=== PATIENT | male | born 1975 | race Caucasian/White ===

== ENCOUNTER 2016-07-19 22:30 | Emergency (ER) | payer BC, OTHER ==
[2016-07-19 23:34] LABS: CHLORIDE,CL 108 mmol/L (98-110); SODIUM,NA 141 mmol/L (136-146)
--- NOTE | 2016-07-19 23:37 | EDM.PDOC ---
ED HPI GENERAL MEDICAL PROBLEM - General Chief Complaint: Abdominal Pain Stated Complaint: ABDOMINAL PAIN Time Seen by Provider: 07/19/16 23:13 - History of Present Illness INITIAL COMMENTS - FREE TEXT/NARRATIVE: HISTORY AND PHYSICAL: History of present illness: Patient 41-year-old male patient concern of abdominal pain intermittently x9 months he is here at request of his mother but no reported fever chills nausea vomiting or urinary symptoms no urethral discharge no trauma no other complaints as no clear palliating or aggravating factors patient is a smoker he does use alcohol and does occasionally smoke marijuana denies any other concern Review of systems: As per history of present illness and below otherwise all systems reviewed and negative. Past medical history: As per history of present illness and as reviewed below otherwise noncontributory. Surgical history: As per history of present illness and as reviewed below otherwise noncontributory. Social history: No reported history of drug or alcohol abuse. Family history: As per history of present illness and as reviewed below otherwise noncontributory. Physical exam: HEENT: Atraumatic, normocephalic, pupils reactive, negative for conjunctival pallor or scleral icterus, mucous membranes moist, throat clear, neck supple, nontender, trachea midline. Lungs: Clear to auscultation, breath sounds equal bilaterally, chest nontender. Heart: S1S2, regular, negative for clicks, rubs, or JVD. Abdomen: Soft, nondistended, no localized tenderness. Negative for masses or hepatosplenomegaly. Negative for costovertebral tenderness. Pelvis: Stable nontender. Genitourinary: Deferred. Rectal: Deferred. Extremities: Atraumatic, negative for cords or calf pain. Neurovascular unremarkable. Neuro: Awake, alert, oriented. Cranial nerves II through XII unremarkable. Cerebellum unremarkable. Motor and sensory unremarkable throughout. Exam nonfocal. Diagnostics: CBC CMP lipase UA urine for GC and Chlamydia Therapeutics: None Impression: #1 chronic intermittent abdominal etiology to be determined Definitive disposition and diagnosis as appropriate pending reevaluation and review of above. Lower Abdominal Pain Score (Numeric/FACES): 5 - Related Data Allergies Allergy/AdvReac Type Severity Reaction Status Date / Time No Known Allergies Allergy Verified 07/19/16 22:44 Home Meds: Home Meds . [No Known Home Meds] 07/19/16 [History] Past Medical History HEENT History: Reports: None Cardiovascular History: Reports: None Respiratory History: Reports: None Gastrointestinal History: Reports: None Genitourinary History: Reports: None Musculoskeletal History: Reports: None Neurological History: Reports: None Psychiatric History: Reports: None Endocrine/Metabolic History: Reports: None Hematologic History: Reports: None Immunologic History: Reports: None Oncologic (Cancer) History: Reports: None Dermatologic History: Reports: None - Infectious Disease History Infectious Disease History: Reports: None - Past Surgical History Head Surgeries/Procedures: Reports: None GI Surgical History: Reports: Other (See Below) Other GI Surgeries/Procedures: pyloric stenosis Social & Family History - Family History Family Medical History: Noncontributory - Tobacco Use Smoking Status *Q: Current Every Day Smoker Years of Tobacco use: 25 Packs/Tins Daily: 1 - Caffeine Use Caffeine Use: Reports: Coffee - Recreational Drug Use Recreational Drug Use: Yes Recreational Drug Type: Reports: Marijuana/Hashish Recreational Drug Use Frequency: Weekly ED ROS GENERAL - Review of Systems Review Of Systems: ROS reveals no pertinent complaints other than HPI. ED EXAM, GENERAL - Physical Exam Exam: See Below (See dictation) Course - Vital Signs Last Recorded V/S: Last Vital Signs Temp 36.5 C 07/19/16 22:43 Pulse 94 07/19/16 22:43 Resp 16 07/19/16 22:43 BP 116/67 07/19/16 22:43 Pulse Ox 96 07/19/16 22:43 - Orders/Labs/Meds Orders: Active Orders 24 hr Category Date Time Status AMYLASE [CHEM] Stat Lab 07/19/16 23:04 Received CHLAMYDIA TRACHOMATIS/GC AMPLF Stat Lab 07/19/16 23:20 Received COMPREHENSIVE METABOLIC PN,CMP [CHEM] Stat Lab 07/19/16 23:04 Received LIPASE [CHEM] Stat Lab 07/19/16 23:04 Received UA W/MICROSCOPIC [URIN] Stat Lab 07/19/16 23:20 Results Labs: Laboratory Tests 07/19/16 07/19/16 Range/Units 23:04 23:20 WBC 10.03 (4.0-11.0) K/uL RBC 5.26 (4.50-5.90) M/uL Hgb 15.6 (13.0-17.0) g/dL Hct 46.8 (38.0-50.0) % MCV 89.0 (80.0-98.0) fL MCH 29.7 (27.0-32.0) pg MCHC 33.3 (31.0-37.0) g/dL RDW Std Deviation 45.4 (28.0-62.0) fl RDW Coeff of Dmitri 14 (11.0-15.0) % Plt Count 228 (150-400) K/uL MPV 9.80 (7.40-12.00) fL Neut % (Auto) 45.4 L (48.0-80.0) % Lymph % (Auto) 44.0 H (16.0-40.0) % [place] % (Auto) 7.1 (0.0-15.0) % Eos % (Auto) 3.0 (0.0-7.0) % Baso % (Auto) 0.5 (0.0-1.5) % Neut # (Auto) 4.6 (1.4-5.7) K/uL Lymph # (Auto) 4.4 H (0.6-2.4) K/uL [place] # (Auto) 0.7 (0.0-0.8) K/uL Eos # (Auto) 0.3 (0.0-0.7) K/uL Baso # (Auto) 0.1 (0.0-0.1) K/uL Nucleated RBC % 0.0 /100WBC Nucleated RBCs # 0 K/uL Urine Color YELLOW Urine Appearance CLEAR Urine pH 6.0 (5.0-8.0) Ur Specific [place] <= 1.005 (1.001-1.035) Urine Protein NEGATIVE (NEGATIVE) mg/dL Urine Glucose (UA) NEGATIVE (NEGATIVE) mg/dL Urine Ketones NEGATIVE (NEGATIVE) mg/dL Urine Occult Blood NEGATIVE (NEGATIVE) Urine Nitrite NEGATIVE (NEGATIVE) Urine Bilirubin NEGATIVE (NEGATIVE) Urine Urobilinogen 0.2 (<2.0) EU/dL Ur Leukocyte Esterase NEGATIVE (NEGATIVE) Departure - Departure Time of Disposition: 23:36 Disposition: Home, Self-Care 01 Condition: good Clinical Impression: Abdominal pain - Discharge Information Forms: ED Department Discharge Additional Instructions: The following information is given to patients seen in the emergency department who are being discharged to home. This information is to outline your options for follow-up care. We provide all patients seen in our emergency department with a follow-up referral. The need for follow-up, as well as the timing and circumstances, are variable depending upon the specifics of your emergency department visit. If you don't have a primary care physician on staff, we will provide you with a referral. We always advise you to contact your personal physician following an emergency department visit to inform them of the circumstance of the visit and for follow-up with them and/or the need for any referrals to a consulting specialist. The emergency department will also refer you to a specialist when appropriate. This referral assures that you have the opportunity for followup care with a specialist. All of these measure are taken in an effort to provide you with optimal care, which includes your followup. Under all circumstances we always encourage you to contact your private physician who remains a resource for coordinating your care. When calling for followup care, please make the office aware that this follow-up is from your recent emergency room visit. If for any reason you are refused follow-up, please contact the [facility] emergency department at and asked to speak to the emergency department charge nurse. [facility] [place] [id number] [facility] Specialty Care - General Surgery Professional Building [address] [place] [address], [address] [place] [address] Followup primary medical doctor/general surgery call to schedule appointment return as needed as discussed - My Orders Last 24 Hours: My Active Orders 07/19/16 23:04 AMYLASE [CHEM] Stat COMPREHENSIVE METABOLIC PN,CMP [CHEM] Stat LIPASE [CHEM] Stat 07/19/16 23:20 CHLAMYDIA TRACHOMATIS/GC AMPLF Stat UA W/MICROSCOPIC [URIN] Stat - Assessment/Plan Last 24 Hours: My Active Orders 07/19/16 23:04 AMYLASE [CHEM] Stat COMPREHENSIVE METABOLIC PN,CMP [CHEM] Stat LIPASE [CHEM] Stat 07/19/16 23:20 CHLAMYDIA TRACHOMATIS/GC AMPLF Stat UA W/MICROSCOPIC [URIN] Stat
[2016-07-20 00:19] VITALS: BP 119/59
== END 2016-07-20 00:08 | disposition home or self-care (01) ==
LOC: MW.ED 22:30
DX: R10.30 Lower abdominal pain, unspecified (principal); F17.210 Nicotine dependence, cigarettes, uncomplicated
CPT/HCPCS: 36415; 80053; 81001; 82150; 83690; 85025; 87491; 87591; 99282; 99284

== ENCOUNTER → 2016-07-20 | Outpatient (CLI) | payer SELFPAY ==
[~2016-07-20] MED LIST: Iopamidol 755 MG/ML 500 ML Multipack Bottle IVPUSH STA
--- NOTE | 2016-07-23 13:51 | CT ---
EXAM DATE: 07/20/16 PATIENT'S AGE: 41 Patient: SIA BRAY Facility: [place], [place] Site Site : 1975 Study: CT Abdomen/Pelvis W/ and W/O Cont [id number]/[id number] 4:55:58 PM Ordering Physician: MADHAVI. BRYCE ALBA Final Report: INDICATION: Lower abdominal pain that radiates into the testicles. TECHNIQUE: CT abdomen and pelvis acquired without and with 100 cc Isovue 370 IV contrast. COMPARISON: None. FINDINGS: LOWER CHEST: Unremarkable. LIVER: Normal in size and attenuation. Single small cyst is present in the left lobe. GALLBLADDER AND BILE DUCTS: Unremarkable. No stones or inflammation. No biliary dilatation. PANCREAS: Unremarkable. No mass or inflammation. SPLEEN: Unremarkable. Normal in size. No masses. ADRENAL GLANDS: Unremarkable. No nodules. KIDNEYS: Unremarkable. No masses, stones, or hydronephrosis. GI TRACT: Unremarkable. Normal in caliber. No sign of mass or inflammation. VASCULATURE: Unremarkable. LYMPH NODES: No lymphadenopathy. OMENTUM/PERITONEUM: Unremarkable. No sign of hernia. No sign of mass or infiltration. No free air or significant free fluid. PELVIS: Unremarkable. No sign of hernia or inflammation. BONES: Unremarkable for age. IMPRESSION: Unremarkable CT of the abdomen and pelvis. No findings to explain abdominal or testicular pain. Please note that all CT scans at this facility use dose modulation, iterative reconstruction, and/or weight-based dosing when appropriate to reduce radiation dose to as low as reasonably achievable. Dictated by Kevin Mcnamara MD @ Jul 23 2016 10:21AM (Electronic Signature) Report Signed by Proxy. ZUCKER HILLSIDE HOSPITALLakeshia
== END ==
LOC: MW.CHRC 16:16
PROVIDERS: ATTEND Family Medicine
DX: R10.9 Unspecified abdominal pain (principal)
CPT/HCPCS: 74178; Q9967

== ENCOUNTER 2017-06-17 20:46 | Emergency (ER) | payer MEDICAID ==
[2017-06-17 20:55] VITALS: BP 120/76
--- NOTE | 2017-06-17 21:26 | EDM.PDOC ---
ED HPI GENERAL MEDICAL PROBLEM - General Chief Complaint: Upper Extremity Injury/Pain Stated Complaint: PAIN/INFECTION RT COLLINS Time Seen by Provider: 06/17/17 21:23 - History of Present Illness INITIAL COMMENTS - FREE TEXT/NARRATIVE: HISTORY AND PHYSICAL: History of present illness: Patient's 42-year-old male presents with a concern of possible infection of his right hand he states he sustained a laceration over the distal aspect of the second metacarpal of his right hand and subsequently developed some pain redness and swelling he denies fever chills nausea vomiting or other complaints. Review of systems: As per history of present illness and below otherwise all systems reviewed and negative. Past medical history: As per history of present illness and as reviewed below otherwise noncontributory. Surgical history: As per history of present illness and as reviewed below otherwise noncontributory. Social history: No reported history of drug or alcohol abuse. Family history: As per history of present illness and as reviewed below otherwise noncontributory. Physical exam: HEENT: Atraumatic, normocephalic, pupils reactive, negative for conjunctival pallor or scleral icterus, mucous membranes moist, throat clear, neck supple, nontender, trachea midline. Lungs: Clear to auscultation, breath sounds equal bilaterally, chest nontender. Heart: S1S2, regular, negative for clicks, rubs, or JVD. Abdomen: Soft, nondistended, nontender. Negative for masses or hepatosplenomegaly. Negative for costovertebral tenderness. Pelvis: Stable nontender. Genitourinary: Deferred. Rectal: Deferred. Extremities: Patient has some small swelling and callus formation with minimal tenderness and erythema over the distal aspect of the second metacarpal of the right hand CMS neurovascular exams unremarkable. Neuro: Awake, alert, oriented. Cranial nerves II through XII unremarkable. Cerebellum unremarkable. Motor and sensory unremarkable throughout. Exam nonfocal. Diagnostics: CBC x-ray right hand Therapeutics: To be determined Impression: #1 observation 2 weeks status post injury right hand rule out cellulitis Definitive disposition and diagnosis as appropriate pending reevaluation and review of above. right hand Pain Score (Numeric/FACES): 7 - Related Data Allergies Allergy/AdvReac Type Severity Reaction Status Date / Time No Known Allergies Allergy Verified 06/17/17 20:55 Home Meds: Home Meds . [No Known Home Meds] 07/19/16 [History] Past Medical History - Past Health History Medical/Surgical History: Denies Medical/Surgical History HEENT History: Reports: None Cardiovascular History: Reports: None Respiratory History: Reports: None Gastrointestinal History: Reports: None Genitourinary History: Reports: None Musculoskeletal History: Reports: None Neurological History: Reports: None Psychiatric History: Reports: None Endocrine/Metabolic History: Reports: None Hematologic History: Reports: None Immunologic History: Reports: None Oncologic (Cancer) History: Reports: None Dermatologic History: Reports: None - Infectious Disease History Infectious Disease History: Reports: None - Past Surgical History Head Surgeries/Procedures: Reports: None GI Surgical History: Reports: Other (See Below) Other GI Surgeries/Procedures: pyloric stenosis Social & Family History - Family History Family Medical History: Noncontributory - Tobacco Use Smoking Status *Q: Current Every Day Smoker Years of Tobacco use: 25 Packs/Tins Daily: 1 - Caffeine Use Caffeine Use: Reports: Coffee - Recreational Drug Use Recreational Drug Use: No Recreational Drug Type: Reports: Marijuana/Hashish Recreational Drug Use Frequency: Weekly Review of Systems - Review of Systems Review Of Systems: ROS reveals no pertinent complaints other than HPI. ED EXAM, GENERAL - Physical Exam Exam: See Below (See dictation) Course - Vital Signs Last Recorded V/S: Last Vital Signs Temp 36.6 C 06/17/17 20:46 Pulse 93 06/17/17 20:46 Resp 18 06/17/17 20:46 BP 120/76 06/17/17 20:46 Pulse Ox 96 06/17/17 20:46 - Orders/Labs/Meds Orders: Active Orders 24 hr Category Date Time Status Hand Comp Min 3V Rt [CR] Stat Exams 06/17/17 20:49 Taken Labs: Laboratory Tests 06/17/17 Range/Units 20:52 WBC 9.69 (4.0-11.0) K/uL RBC 5.35 (4.50-5.90) M/uL Hgb 15.8 (13.0-17.0) g/dL Hct 46.7 (38.0-50.0) % MCV 87.3 (80.0-98.0) fL MCH 29.5 (27.0-32.0) pg MCHC 33.8 (31.0-37.0) g/dL RDW Std Deviation 43.5 (28.0-62.0) fl RDW Coeff of Dmitri 14 (11.0-15.0) % Plt Count 217 (150-400) K/uL MPV 10.20 (7.40-12.00) fL Neut % (Auto) 55.6 (48.0-80.0) % Lymph % (Auto) 32.8 (16.0-40.0) % [place] % (Auto) 8.2 (0.0-15.0) % Eos % (Auto) 3.1 (0.0-7.0) % Baso % (Auto) 0.3 (0.0-1.5) % Neut # (Auto) 5.4 (1.4-5.7) K/uL Lymph # (Auto) 3.2 H (0.6-2.4) K/uL [place] # (Auto) 0.8 (0.0-0.8) K/uL Eos # (Auto) 0.3 (0.0-0.7) K/uL Baso # (Auto) 0.0 (0.0-0.1) K/uL Nucleated RBC % 0.0 /100WBC Nucleated RBCs # 0 K/uL Meds: Medications Discontinued Medications Generic Name Dose Route Start Last Admin Trade Name Axelq PRN Reason Stop Dose Admin Ceftriaxone Sodium 1,000 mg/ 4 mls @ 4 mls/sec 06/17/17 22:00 Lidocaine HCl IM 06/17/17 22:01 ONETIME ONE Departure - Departure Time of Disposition: 22:01 Disposition: Home, Self-Care 01 Condition: Good Clinical Impression: Cellulitis - Discharge Information Forms: ED Department Discharge Additional Instructions: The following information is given to patients seen in the emergency department who are being discharged to home. This information is to outline your options for follow-up care. We provide all patients seen in our emergency department with a follow-up referral. The need for follow-up, as well as the timing and circumstances, are variable depending upon the specifics of your emergency department visit. If you don't have a primary care physician on staff, we will provide you with a referral. We always advise you to contact your personal physician following an emergency department visit to inform them of the circumstance of the visit and for follow-up with them and/or the need for any referrals to a consulting specialist. The emergency department will also refer you to a specialist when appropriate. This referral assures that you have the opportunity for followup care with a specialist. All of these measure are taken in an effort to provide you with optimal care, which includes your followup. Under all circumstances we always encourage you to contact your private physician who remains a resource for coordinating your care. When calling for followup care, please make the office aware that this follow-up is from your recent emergency room visit. If for any reason you are refused follow-up, please contact the [facility] emergency department at and asked to speak to the emergency department charge nurse. [facility] specialty clinic-Plastics [address] [place] [id number] Keflex as prescribed sling as directed follow-up hand surgery above fall for appointment Keflex as prescribed - My Orders Last 24 Hours: My Active Orders 06/17/17 20:49 Hand Comp Min 3V Rt [CR] Stat - Assessment/Plan Last 24 Hours: My Active Orders 06/17/17 20:49 Hand Comp Min 3V Rt [CR] Stat
[2017-06-17] MEDS ORDERED: cefTRIAXone 1,000 MG in Lidocaine 1% 4 ML IM ONE (22:00)
--- NOTE | 2017-06-18 13:10 | CR ---
EXAM DATE: 06/17/17 PATIENT'S AGE: 42 Patient: SIA BRAY Facility: [place], [place] Site . Site : 1975 Study: XRay Extremity Right hand [id number]/16/2018 9:13:34 PM Ordering Physician: Doctor Carranza Final Report: Indication: Pain and swelling 2nd MCP joint, recent trauma Technique: Three views right hand Comparison: None Findings: Bones: Alignment is normal. No fractures or bone lesions. Joint spaces: Unremarkable. Soft tissues: Unremarkable. Impression: Negative. Dictated by Lisa Turk MD @ Jun 17 2017 9:33PM (Electronic Signature) Report Signed by Proxy. ERIBERTO
== END 2017-06-17 22:28 | disposition home or self-care (01) ==
LOC: MW.ED 20:46
DX: L03.113 Cellulitis of right upper limb (principal); F17.210 Nicotine dependence, cigarettes, uncomplicated
CPT/HCPCS: 36415; 73130; 85025; 96372; 99283; A4566; J0696

== ENCOUNTER 2017-06-22 11:55 | Emergency (ER) | payer MEDICAID ==
--- NOTE | 2017-06-22 12:22 | EDM.PDOC ---
ED HPI GENERAL MEDICAL PROBLEM - General Chief Complaint: Skin Complaint Stated Complaint: RASH ON RT HAND Time Seen by Provider: 06/22/17 12:17 - History of Present Illness INITIAL COMMENTS - FREE TEXT/NARRATIVE: HISTORY AND PHYSICAL: History of present illness: Patient 42-year-old male who was seen prior visit for possible infection of his right hand this is been going on for several weeks he states he had an injury several weeks prior to that visit x-ray was negative routine labs were unremarkable he was prescribed Keflex he did not get this filled he states that this was changed per his conversation with hand surgery office to Augmentin he has been on that and presents now with a rash on the right forearm. His schedule appointment is this week. No fever chills nausea vomiting or other complaints Review of systems: As per history of present illness and below otherwise all systems reviewed and negative. Past medical history: As per history of present illness and as reviewed below otherwise noncontributory. Surgical history: As per history of present illness and as reviewed below otherwise noncontributory. Social history: No reported history of drug or alcohol abuse. Family history: As per history of present illness and as reviewed below otherwise noncontributory. Physical exam: HEENT: Atraumatic, normocephalic, pupils reactive, negative for conjunctival pallor or scleral icterus, mucous membranes moist, throat clear, neck supple, nontender, trachea midline. Lungs: Clear to auscultation, breath sounds equal bilaterally, chest nontender. Heart: S1S2, regular, negative for clicks, rubs, or JVD. Abdomen: Soft, nondistended, nontender. Negative for masses or hepatosplenomegaly. Negative for costovertebral tenderness. Pelvis: Stable nontender. Genitourinary: Deferred. Rectal: Deferred. Extremities: Right hand has no significant interval change in arguable improvement of the swelling is no erythema or fluctuance present maculopapular type rash on the forearms very nonspecific and nontoxic in appearance no evidence of lymphangitis. Neuro: Awake, alert, oriented. Cranial nerves II through XII unremarkable. Cerebellum unremarkable. Motor and sensory unremarkable throughout. Exam nonfocal. Diagnostics: None Therapeutics: None Impression: #1 medical screening exam #2 rash #3 history of possible early cellulitis right hand Definitive disposition and diagnosis as appropriate pending reevaluation and review of above. Right Hand/Arm Pain Score (Numeric/FACES): 7 - Related Data Allergies Allergy/AdvReac Type Severity Reaction Status Date / Time codeine Allergy Hives Verified 06/22/17 12:17 Home Meds: Home Meds Amoxicillin/Clavulanate K [Augmentin 875-125 MG] 1 tab PO BID 06/22/17 [History] Past Medical History - Past Health History Medical/Surgical History: Denies Medical/Surgical History HEENT History: Reports: None Cardiovascular History: Reports: None Respiratory History: Reports: None Gastrointestinal History: Reports: None Genitourinary History: Reports: None Musculoskeletal History: Reports: None Neurological History: Reports: None Psychiatric History: Reports: None Endocrine/Metabolic History: Reports: None Hematologic History: Reports: None Immunologic History: Reports: None Oncologic (Cancer) History: Reports: None Dermatologic History: Reports: None - Infectious Disease History Infectious Disease History: Reports: None - Past Surgical History Head Surgeries/Procedures: Reports: None GI Surgical History: Reports: Other (See Below) Other GI Surgeries/Procedures: pyloric stenosis Social & Family History - Family History Family Medical History: Noncontributory - Tobacco Use Smoking Status *Q: Current Every Day Smoker Years of Tobacco use: 25 Packs/Tins Daily: 1 - Caffeine Use Caffeine Use: Reports: Coffee - Recreational Drug Use Recreational Drug Use: No Recreational Drug Type: Reports: Marijuana/Hashish Recreational Drug Use Frequency: Weekly ED ROS GENERAL - Review of Systems Review Of Systems: ROS reveals no pertinent complaints other than HPI. ED EXAM, SKIN/RASH Exam: See Below (See dictation) Course - Vital Signs Last Recorded V/S: Last Vital Signs Temp 36.7 C 06/22/17 12:05 Pulse 82 06/22/17 12:05 Resp 18 06/22/17 12:05 BP 122/69 06/22/17 12:05 Pulse Ox 97 06/22/17 12:05 Departure - Departure Time of Disposition: 12:21 Disposition: Home, Self-Care 01 Condition: Good Clinical Impression: Encounter for medical screening examination, Rash, Cellulitis - Discharge Information Referrals: PCP,None [Primary Care Provider] - Additional Instructions: The following information is given to patients seen in the emergency department who are being discharged to home. This information is to outline your options for follow-up care. We provide all patients seen in our emergency department with a follow-up referral. The need for follow-up, as well as the timing and circumstances, are variable depending upon the specifics of your emergency department visit. If you don't have a primary care physician on staff, we will provide you with a referral. We always advise you to contact your personal physician following an emergency department visit to inform them of the circumstance of the visit and for follow-up with them and/or the need for any referrals to a consulting specialist. The emergency department will also refer you to a specialist when appropriate. This referral assures that you have the opportunity for followup care with a specialist. All of these measure are taken in an effort to provide you with optimal care, which includes your followup. Under all circumstances we always encourage you to contact your private physician who remains a resource for coordinating your care. When calling for followup care, please make the office aware that this follow-up is from your recent emergency room visit. If for any reason you are refused follow-up, please contact the [facility] emergency department at and asked to speak to the emergency department charge nurse. Augmentin as prescribed sling as directed keep scheduled clinic appointment Benadryl as directed return as needed as discussed[]
[2017-06-22 17:20] VITALS: BP 111/66
== END 2017-06-22 12:35 | disposition home or self-care (01) ==
LOC: MW.ED 11:55
DX: L03.113 Cellulitis of right upper limb (principal); R21 Rash and other nonspecific skin eruption
CPT/HCPCS: 99282

== ENCOUNTER 2017-07-19 11:10 | Observation (INO) | payer MEDICAID ==
[2017-07-19] MEDS ORDERED: Sodium Chloride 0.9% 10 ML Syringe FLUSH PRN ×2 (11:23→16:48)
[2017-07-19] MEDS ORDERED: Sodium Chloride 0.9% 2.5 ML Syringe FLUSH PRN ×2 (11:23→16:48)
--- NOTE | 2017-07-19 11:36 | EDM.PDOC ---
ED HPI GENERAL MEDICAL PROBLEM - General Stated Complaint: RIGHT ELBOW SWOLLEN Time Seen by Provider: 07/19/17 11:28 Source of Information: Reports: Patient, Family History Limitations: Reports: No Limitations - History of Present Illness INITIAL COMMENTS - FREE TEXT/NARRATIVE: HISTORY AND PHYSICAL: []42-year-old male sent to the emergency department by tender to clinic Dr. Vance History of Present Illness: []Patient has 2 weeks history of cellulitis to his hand and his pseudogout to his right elbow Elbow cannot be straightened to the edema is significant heat radiating pain as a Patient is a smoker Review of Systems: As per history of present illness and below otherwise all systems reviewed and negative. Past medical history: As per history of present illness and as reviewed below otherwise noncontributory. Surgical history: As per history of present illness and as reviewed below otherwise noncontributory. Social history: No reported history of drug or alcohol abuse. Family history: As per history of present illness and as reviewed below otherwise noncontributory. Physical exam: Alert male is cooperative with examination slight position. Does move when asked answers questions in 2-3 words. No shortness of breath HEENT: Atraumatic, normocehpalic, pupils reactive, negative for conjunctival pallor or scleral icterus, mucous membranes moist, throat clear, neck supple, nontender, trachea midline. Lungs: Wheezing on auscultation, breath sounds equal bilaterally, chest non tender. Heart: S1S2, regular, negative for clicks, rubs, or JVD. Abdomen: Soft, nondistended, nontender. Negative for masses or hepatossplenmegaly. Negative for costovertebral tenderness. Pelvis: Stable nontender. Genitourinary: Deferred. Rectal: Deferred Extremities: Atraumatic, negative for cords or calf pain. Right hand with knuckles had cellulitis he states that these are improved now he does have full range of motion. Radial pulses intact. Right elbow with 3+ edema heat radiating there is erythema.Extremely tender upon palpation Neurovascular unremarkable. Neuro: Awake, alert, oriented. Cranial nerves II through XII unremarkable. Cerebellum unremarkable. Motor and sensory unremarkable throughout. Exam nonfocal. Discussed the patient with Dr. Lau who accepted patient for Observation. Diagnostics: [CBC CMP PT/INR blood cultures 2 x-ray chest x-ray right elbow] Therapeutics: []IV normal saline Toradol Benadryl Morphine Impression: [Acute cellulitis/right elbow] Positive methamphetamine in urine Plan: []Refer to observation Definitive disposition and diagnosis as appropriate pending reevaluation and review of above. Onset: Gradual Duration: Week(s): (2) Location: Reports: Upper Extremity, Right Quality: Reports: Ache Severity: Moderate Improves with: Reports: None Worsens with: Reports: None Associated Symptoms: Reports: No Other Symptoms Right Elbow Pain Score (Numeric/FACES): 9 - Related Data Allergies Allergy/AdvReac Type Severity Reaction Status Date / Time codeine Allergy Hives Verified 06/22/17 12:17 Home Meds: Home Meds Amoxicillin/Clavulanate K [Augmentin 875-125 MG] 1 tab PO BID 06/22/17 [History] Colchicine [Colcrys] 0.6 mg DAILY 07/19/17 [History] Past Medical History - Past Health History Medical/Surgical History: Denies Medical/Surgical History HEENT History: Reports: None Cardiovascular History: Reports: None Respiratory History: Reports: None Gastrointestinal History: Reports: None Genitourinary History: Reports: None Musculoskeletal History: Reports: None Neurological History: Reports: None Psychiatric History: Reports: None Endocrine/Metabolic History: Reports: None Hematologic History: Reports: None Immunologic History: Reports: None Oncologic (Cancer) History: Reports: None Dermatologic History: Reports: None - Infectious Disease History Infectious Disease History: Reports: None - Past Surgical History Head Surgeries/Procedures: Reports: None GI Surgical History: Reports: Other (See Below) Other GI Surgeries/Procedures: pyloric stenosis Social & Family History - Family History Family Medical History: Noncontributory - Caffeine Use Caffeine Use: Reports: Coffee ED ROS GENERAL - Review of Systems Review Of Systems: ROS reveals no pertinent complaints other than HPI. ED EXAM, GENERAL - Physical Exam Exam: See Below (see dictation) Course - Vital Signs Last Recorded V/S: Last Vital Signs Temp 37.5 C 07/19/17 15:25 Pulse 75 07/19/17 15:25 Resp 14 07/19/17 15:25 BP 128/87 07/19/17 15:25 Pulse Ox 99 07/19/17 15:25 - Orders/Labs/Meds Orders: Active Orders 24 hr Category Date Time Status Patient Status [ADT] Stat ADT 07/19/17 15:31 Ordered CULTURE BLOOD [BC] Stat Lab 07/19/17 11:41 Received CULTURE BLOOD [BC] Stat Lab 07/19/17 12:08 Received DRUG SCREEN, URINE [URCHEM] Stat Lab 07/19/17 13:50 Ordered UA W/MICROSCOPIC [URIN] Stat Lab 07/19/17 13:50 Ordered Sodium Chloride 0.9% [Saline Flush] Med 07/19/17 11:23 Active 10 ml FLUSH ASDIRECTED PRN Sodium Chloride 0.9% [Saline Flush] Med 07/19/17 11:23 Active 2.5 ml FLUSH ASDIRECTED PRN Blood Culture x2 Reflex Set [OM.PC] Stat Oth 07/19/17 11:23 Ordered Saline Lock Insert [OM.PC] Stat Ot 07/19/17 11:22 Ordered Medication Orders Sodium Chloride (Saline Flush) 10 ml FLUSH ASDIRECTED PRN PRN Reason: Keep Vein Open Sodium Chloride (Saline Flush) 2.5 ml FLUSH ASDIRECTED PRN PRN Reason: Keep Vein Open Labs: Laboratory Tests 07/19/17 07/19/17 07/19/17 Range/Units 11:40 11:40 11:40 WBC 12.03 H (4.0-11.0) K/uL RBC 5.37 (4.50-5.90) M/uL Hgb 15.7 (13.0-17.0) g/dL Hct 46.9 (38.0-50.0) % MCV 87.3 (80.0-98.0) fL MCH 29.2 (27.0-32.0) pg MCHC 33.5 (31.0-37.0) g/dL RDW Std Deviation 45.0 (28.0-62.0) fl RDW Coeff of Dmitri 14 (11.0-15.0) % Plt Count 206 (150-400) K/uL MPV 10.00 (7.40-12.00) fL Neut % (Auto) 69.8 (48.0-80.0) % Lymph % (Auto) 16.7 (16.0-40.0) % Clay % (Auto) 12.1 (0.0-15.0) % Eos % (Auto) 1.2 (0.0-7.0) % Baso % (Auto) 0.2 (0.0-1.5) % Neut # (Auto) 8.4 H (1.4-5.7) K/uL Lymph # (Auto) 2.0 (0.6-2.4) K/uL Clay # (Auto) 1.5 H (0.0-0.8) K/uL Eos # (Auto) 0.1 (0.0-0.7) K/uL Baso # (Auto) 0.0 (0.0-0.1) K/uL Nucleated RBC % 0.0 /100WBC Nucleated RBCs # 0 K/uL INR 1.01 Sodium 141 (136-148) mmol/L Potassium 4.3 (3.5-5.1) mmol/L Chloride 105 (98-107) mmol/L Carbon Dioxide 27.9 (21.0-32.0) mmol/L BUN 17 (7.0-18.0) mg/dL Creatinine 1.0 (0.8-1.3) mg/dL Est Cr Clr Drug Dosing TNP Estimated GFR (MDRD) > 60.0 ml/min Glucose 103 (74-106) mg/dL Uric Acid 3.8 (2.6-7.2) mg/dL Calcium 8.4 L (8.5-10.1) mg/dL Total Bilirubin 0.3 (0.2-1.0) mg/dL AST 11 L (15-37) IU/L ALT 19 (14-63) IU/L Alkaline Phosphatase 73 (46-116) U/L Total Protein 5.9 L (6.4-8.2) g/dL Albumin 3.3 L (3.4-5.0) g/dL Globulin 2.6 (2.0-3.5) g/dL Albumin/Globulin Ratio 1.3 (1.3-2.8) Urine Color Urine Appearance Urine pH (5.0-8.0) Ur Specific [place] (1.001-1.035) Urine Protein (NEGATIVE) mg/dL Urine Glucose (UA) (NEGATIVE) mg/dL Urine Ketones (NEGATIVE) mg/dL Urine Occult Blood (NEGATIVE) Urine Nitrite (NEGATIVE) Urine Bilirubin (NEGATIVE) Urine Urobilinogen (<2.0) EU/dL Ur Leukocyte Esterase (NEGATIVE) Urine RBC (0-2/HPF) Urine WBC (0-5/HPF) Ur Epithelial Cells (NONE-FEW) Urine Bacteria (NEGATIVE) Urine Opiates Screen (NEGATIVE) Ur Oxycodone Screen (NEGATIVE) Urine Methadone Screen (NEGATIVE) Ur Barbiturates Screen (NEGATIVE) Ur Phencyclidine Scrn (NEGATIVE) Ur Amphetamine Screen (NEGATIVE) U Methamphetamines Scrn (NEGATIVE) U Benzodiazepines Scrn (NEGATIVE) U Cocaine Metab Screen (NEGATIVE) U Marijuana (THC) Screen (NEGATIVE) 07/19/17 07/19/17 Range/Units 13:50 13:50 WBC (4.0-11.0) K/uL RBC (4.50-5.90) M/uL Hgb (13.0-17.0) g/dL Hct (38.0-50.0) % MCV (80.0-98.0) fL MCH (27.0-32.0) pg MCHC (31.0-37.0) g/dL RDW Std Deviation (28.0-62.0) fl RDW Coeff of Dmitri (11.0-15.0) % Plt Count (150-400) K/uL MPV (7.40-12.00) fL Neut % (Auto) (48.0-80.0) % Lymph % (Auto) (16.0-40.0) % Clay % (Auto) (0.0-15.0) % Eos % (Auto) (0.0-7.0) % Baso % (Auto) (0.0-1.5) % Neut # (Auto) (1.4-5.7) K/uL Lymph # (Auto) (0.6-2.4) K/uL Clay # (Auto) (0.0-0.8) K/uL Eos # (Auto) (0.0-0.7) K/uL Baso # (Auto) (0.0-0.1) K/uL Nucleated RBC % /100WBC Nucleated RBCs # K/uL INR Sodium (136-148) mmol/L Potassium (3.5-5.1) mmol/L Chloride (98-107) mmol/L Carbon Dioxide (21.0-32.0) mmol/L BUN (7.0-18.0) mg/dL Creatinine (0.8-1.3) mg/dL Est Cr Clr Drug Dosing Estimated GFR (MDRD) ml/min Glucose (74-106) mg/dL Uric Acid (2.6-7.2) mg/dL Calcium (8.5-10.1) mg/dL Total Bilirubin (0.2-1.0) mg/dL AST (15-37) IU/L ALT (14-63) IU/L Alkaline Phosphatase (46-116) U/L Total Protein (6.4-8.2) g/dL Albumin (3.4-5.0) g/dL Globulin (2.0-3.5) g/dL Albumin/Globulin Ratio (1.3-2.8) Urine Color YELLOW Urine Appearance CLEAR Urine pH 6.0 (5.0-8.0) Ur Specific [place] 1.020 (1.001-1.035) Urine Protein NEGATIVE (NEGATIVE) mg/dL Urine Glucose (UA) NEGATIVE (NEGATIVE) mg/dL Urine Ketones NEGATIVE (NEGATIVE) mg/dL Urine Occult Blood NEGATIVE (NEGATIVE) Urine Nitrite NEGATIVE (NEGATIVE) Urine Bilirubin NEGATIVE (NEGATIVE) Urine Urobilinogen 0.2 (<2.0) EU/dL Ur Leukocyte Esterase NEGATIVE (NEGATIVE) Urine RBC 0-1 (0-2/HPF) Urine WBC 0-1 (0-5/HPF) Ur Epithelial Cells RARE (NONE-FEW) Urine Bacteria RARE (NEGATIVE) Urine Opiates Screen NEGATIVE (NEGATIVE) Ur Oxycodone Screen NEGATIVE (NEGATIVE) Urine Methadone Screen NEGATIVE (NEGATIVE) Ur Barbiturates Screen NEGATIVE (NEGATIVE) Ur Phencyclidine Scrn NEGATIVE (NEGATIVE) Ur Amphetamine Screen NEGATIVE (NEGATIVE) U Methamphetamines Scrn POSITIVE (NEGATIVE) U Benzodiazepines Scrn NEGATIVE (NEGATIVE) U Cocaine Metab Screen NEGATIVE (NEGATIVE) U Marijuana (THC) Screen NEGATIVE (NEGATIVE) Meds: Medications Generic Name Dose Route Start Last Admin Trade Name Freq PRN Reason Stop Dose Admin Sodium Chloride 10 ml 07/19/17 11:23 Saline Flush FLUSH ASDIRECTED PRN Keep Vein Open Sodium Chloride 2.5 ml 07/19/17 11:23 Saline Flush FLUSH ASDIRECTED PRN Keep Vein Open Discontinued Medications Generic Name Dose Route Start Last Admin Trade Name Freq PRN Reason Stop Dose Admin Diphenhydramine HCl 25 mg 07/19/17 11:37 05/18/18 11:56 Benadryl IVPUSH 07/19/17 11:38 25 mg ONETIME ONE Administration Sodium Chloride 1,000 mls @ 999 mls/hr 07/19/17 11:37 07/19/17 14:00 Normal Saline IV 07/19/17 12:37 Infused STAT ONE Infusion Piperacillin Sod/Tazobactam 50 mls @ 100 mls/hr 07/19/17 12:05 07/19/17 13:57 Sod 3.375 gm/ Sodium Chloride IV 07/19/17 12:34 100 mls/hr ONETIME ONE Administration Vancomycin HCl 1 gm/ Sodium 250 mls @ 250 mls/hr 07/19/17 12:05 07/19/17 12: 12 Chloride IV 07/19/17 13:04 250 mls/hr ONETIME ONE Administration Ketorolac Tromethamine 30 mg 07/19/17 11:37 07/19/17 11:53 Toradol IVPUSH 07/19/17 11:38 30 mg ONETIME ONE Administration Morphine Sulfate 2 mg 07/19/17 11:37 07/19/17 11:59 Morphine IVPUSH 07/19/17 11:38 2 mg ONETIME ONE Administration Morphine Sulfate 2 mg 07/19/17 13:43 07/19/17 13:53 Morphine IVPUSH 07/19/17 13:44 2 mg ONETIME ONE Administration Departure - Departure Time of Disposition: 15:29 Disposition: Refer to Observation Condition: Good Clinical Impression: Cellulitis Qualifiers: Site of cellulitis: extremity Site of cellulitis of extremity: upper extremity Laterality: right Qualified Code(s): L03.113 - Cellulitis of right upper limb - Discharge Information Instructions: Cellulitis, Adult Referrals: Darryn Churchill MD [Primary Care Provider] - - My Orders Last 24 Hours: My Active Orders 07/19/17 11:22 Saline Lock Insert [OM.PC] Stat 07/19/17 11:23 Sodium Chloride 0.9% [Saline Flush] 10 ml FLUSH ASDIRECTED PRN Sodium Chloride 0.9% [Saline Flush] 2.5 ml FLUSH ASDIRECTED PRN Blood Culture x2 Reflex Set [OM.PC] Stat 07/19/17 11:41 CULTURE BLOOD [BC] Stat 07/19/17 12:08 CULTURE BLOOD [BC] Stat 07/19/17 13:50 DRUG SCREEN, URINE [URCHEM] Stat UA W/MICROSCOPIC [URIN] Stat 07/19/17 15:31 Patient Status [ADT] Stat - Assessment/Plan Last 24 Hours: My Active Orders 07/19/17 11:22 Saline Lock Insert [OM.PC] Stat 07/19/17 11:23 Sodium Chloride 0.9% [Saline Flush] 10 ml FLUSH ASDIRECTED PRN Sodium Chloride 0.9% [Saline Flush] 2.5 ml FLUSH ASDIRECTED PRN Blood Culture x2 Reflex Set [OM.PC] Stat 07/19/17 11:41 CULTURE BLOOD [BC] Stat 07/19/17 12:08 CULTURE BLOOD [BC] Stat 07/19/17 13:50 DRUG SCREEN, URINE [URCHEM] Stat UA W/MICROSCOPIC [URIN] Stat 07/19/17 15:31 Patient Status [ADT] Stat
[2017-07-19] MEDS ORDERED: Morphine 4 MG/ML Syringe IVPUSH ONE ×2 (11:37→13:43)
[2017-07-19] MEDS ORDERED: Sodium Chloride 0.9% 1,000 ML IV ONE (11:37)
[2017-07-19] MEDS ORDERED: diphenhydrAMINE 50 MG/ML SDV IVPUSH ONE (11:37)
[2017-07-19] MEDS ORDERED: Ketorolac 30 MG/ML SDV IVPUSH ONE (11:37)
[2017-07-19] MEDS ORDERED: Piperacillin/Tazobactam 3.375 GM in Sodium Chloride 0.9% 50 ML IV ONE (12:05)
[2017-07-19 12:39] LABS: CHLORIDE,CL 105 mmol/L (98-107); SODIUM,NA 141 mmol/L (136-148)
--- NOTE | 2017-07-19 13:43 | CR ---
EXAMINATION: Right elbow HISTORY: Pain COMPARISON: 07/06/2014 TECHNIQUE: 3 views FINDINGS/IMPRESSION: There is no acute osseous abnormality, dislocation, or fracture. Bone mineraliza tion and joint spaces are preserved. No definite joint effusion however a true lateral was not obtain ed.
--- NOTE | 2017-07-19 13:47 | CR ---
EXAMINATION: Two-view chest (PA and Lateral views). HISTORY: Shortness of breath. FINDINGS: The trachea is midline. The cardiomediastinal silhouette is within normal limits. No pulmonary infilt rates, effusions or pneumothorax. Osseous structures appear unremarkable. IMPRESSION: No acute cardiopulmonary process.
[2017-07-19] MEDS ORDERED: Albuterol/Ipratropium 3.0-0.5 MG/3 ML Neb Soln NEB PRN ×2 (16:48→19:18)
[2017-07-19] MEDS ORDERED: methylPREDNISolone Sodium Succinate 125 MG/2 ML SDV IVPUSH ONE (16:51)
[2017-07-19] MEDS: Morphine 10 MG/ML Syringe IVPUSH PRN ×2 (17:11→19:53)
[2017-07-19] MEDS: Lactated Ringers 1,000 ML IV SCH (17:18)
[2017-07-19] MEDS: Enoxaparin 40 MG/0.4 ML Syringe SUBCUT SCH (17:24)
--- NOTE | 2017-07-19 17:41 | PCM.HP ---
H&P History of Present Illness - General Date of Service: 07/20/17 Admit Problem/Dx: Admission Diagnosis/Problem Admission Diagnosis/Problem Cellulitis and abscess of arm Source of Information: Patient - History of Present Illness Initial Comments - Free Text/Narative: Patient 42 y old man presented to hospital due to severe pain swelling and warmth in the rt elbow .Patient has history of pseudogout and he start having pain in the knuckle of the right hand at the base of fourth finger 2 weeks ago and later he had pain in the right elbow , swelling and erythema. He saw the surgeon Dr. Ann and she aspirated his joint / elbow and diagnosed him with pseudogout.She gave him colchicine po a He had mild improvement in his pain and sweelling , but soon he start having worsening symptoms and came to ER. He smokes since age 8 and is currently wheezing and has cough productive of green phlegm for the past week. Onset of Symptoms: Reports: Gradual Duration of Symptoms: Reports: Week(s): Location: Reports: Upper Extremity, Right Right Elbow Pain Score (Numeric/FACES): 2 - Related Data Allergies/Adverse Reactions: Allergies Allergy/AdvReac Type Severity Reaction Status Date / Time codeine Allergy Hives Verified 06/22/17 12:17 Home Medications: Home Meds Amoxicillin/Clavulanate K [Augmentin 875-125 MG] 1 tab PO BID 06/22/17 [History] Colchicine [Colcrys] 0.6 mg DAILY 07/19/17 [History] Past Medical History - Past Health History Medical/Surgical History: Denies Medical/Surgical History HEENT History: Reports: None Cardiovascular History: Reports: None Respiratory History: Reports: None Gastrointestinal History: Reports: None Genitourinary History: Reports: None Musculoskeletal History: Reports: None Other Musculoskeletal History: pseudo gout Neurological History: Reports: None Psychiatric History: Reports: Aggressive/Hostile Behaviors Endocrine/Metabolic History: Reports: None Hematologic History: Reports: None Immunologic History: Reports: None Oncologic (Cancer) History: Reports: None Dermatologic History: Reports: None - Infectious Disease History Infectious Disease History: Reports: None - Past Surgical History Head Surgeries/Procedures: Reports: None GI Surgical History: Reports: Other (See Below) Other GI Surgeries/Procedures: pyloric stenosis Social & Family History - Family History Family Medical History: Noncontributory - Tobacco Use Smoking Status *Q: Current Every Day Smoker Years of Tobacco use: 28 Packs/Tins Daily: 1.5 Used Tobacco, but Quit: No Second Hand Smoke Exposure: Yes - Caffeine Use Caffeine Use: Reports: Coffee, Energy Drinks, Soda - Alcohol Use Days Per Week of Alcohol Use: 4 Number of Drinks Per Day: 1 Total Drinks Per Week: 4 - Recreational Drug Use Recreational Drug Use: Yes Recreational Drug Type: Reports: Marijuana/Hashish, Methamphetamine Recreational Drug Use Frequency: Monthly H&P Review of Systems - Review of Systems: Review Of Systems: See Below General: Reports: No Symptoms. Denies: Fever, Chills, Malaise, Weight Loss HEENT: Reports: No Symptoms Pulmonary: Reports: Shortness of Breath, Wheezing, Cough, Sputum Cardiovascular: Reports: No Symptoms Gastrointestinal: Reports: No Symptoms Genitourinary: Reports: No Symptoms Musculoskeletal: Reports: Joint Pain, Joint Swelling Skin: Reports: No Symptoms Psychiatric: Reports: No Symptoms Neurological: Reports: No Symptoms Exam - Exam Exam: See Below - Vital Signs Vital Signs: Last Vital Signs Temp 99.5 F 07/19/17 15:25 Pulse 75 07/19/17 15:25 Resp 14 07/19/17 15:25 BP 128/87 07/19/17 15:25 Pulse Ox 99 07/19/17 15:25 Weight: 199 lb 11.2 oz - Exam General: Alert, Oriented HEENT: Conjunctiva Clear, EACs Clear, EOMI, Hearing Intact, Mucosa Moist & [place] , Nares Patent Neck: Supple, Trachea Midline Lungs: Wheezing Cardiovascular: Regular Rate GI/Abdominal Exam: Normal Bowel Sounds, Soft, Non-Tender, No Organomegaly Back Exam: Normal Inspection Extremities: Joint Swelling, Arm Pain, Increased Warmth Skin: Warm, Dry Neurological: Cranial Nerves Intact, Reflexes Equal Bilateral Neuro Extensive - Mental Status: Alert, Oriented x3, Normal Mood/Affect, Normal Cognition, Memory Intact - Patient Data Lab Results Last 24 hrs: Laboratory Results - last 24 hr 07/19/17 07/19/17 07/19/17 Range/Units 11:40 11:40 11:40 WBC 12.03 H (4.0-11.0) K/uL RBC 5.37 (4.50-5.90) M/uL Hgb 15.7 (13.0-17.0) g/dL Hct 46.9 (38.0-50.0) % MCV 87.3 (80.0-98.0) fL MCH 29.2 (27.0-32.0) pg MCHC 33.5 (31.0-37.0) g/dL RDW Std Deviation 45.0 (28.0-62.0) fl RDW Coeff of Dmitri 14 (11.0-15.0) % Plt Count 206 (150-400) K/uL MPV 10.00 (7.40-12.00) fL Neut % (Auto) 69.8 (48.0-80.0) % Lymph % (Auto) 16.7 (16.0-40.0) % [place] % (Auto) 12.1 (0.0-15.0) % Eos % (Auto) 1.2 (0.0-7.0) % Baso % (Auto) 0.2 (0.0-1.5) % Neut # (Auto) 8.4 H (1.4-5.7) K/uL Lymph # (Auto) 2.0 (0.6-2.4) K/uL [place] # (Auto) 1.5 H (0.0-0.8) K/uL Eos # (Auto) 0.1 (0.0-0.7) K/uL Baso # (Auto) 0.0 (0.0-0.1) K/uL Nucleated RBC % 0.0 /100WBC Nucleated RBCs # 0 K/uL INR 1.01 Sodium 141 (136-148) mmol/L Potassium 4.3 (3.5-5.1) mmol/L Chloride 105 (98-107) mmol/L Carbon Dioxide 27.9 (21.0-32.0) mmol/L BUN 17 (7.0-18.0) mg/dL Creatinine 1.0 (0.8-1.3) mg/dL Est Cr Clr Drug Dosing TNP Estimated GFR (MDRD) > 60.0 ml/min Glucose 103 (74-106) mg/dL Uric Acid 3.8 (2.6-7.2) mg/dL Calcium 8.4 L (8.5-10.1) mg/dL Total Bilirubin 0.3 (0.2-1.0) mg/dL AST 11 L (15-37) IU/L ALT 19 (14-63) IU/L Alkaline Phosphatase 73 (46-116) U/L Total Protein 5.9 L (6.4-8.2) g/dL Albumin 3.3 L (3.4-5.0) g/dL Globulin 2.6 (2.0-3.5) g/dL Albumin/Globulin Ratio 1.3 (1.3-2.8) Urine Color Urine Appearance Urine pH (5.0-8.0) Ur Specific [place] (1.001-1.035) Urine Protein (NEGATIVE) mg/dL Urine Glucose (UA) (NEGATIVE) mg/dL Urine Ketones (NEGATIVE) mg/dL Urine Occult Blood (NEGATIVE) Urine Nitrite (NEGATIVE) Urine Bilirubin (NEGATIVE) Urine Urobilinogen (<2.0) EU/dL Ur Leukocyte Esterase (NEGATIVE) Urine RBC (0-2/HPF) Urine WBC (0-5/HPF) Ur Epithelial Cells (NONE-FEW) Urine Bacteria (NEGATIVE) Urine Opiates Screen (NEGATIVE) Ur Oxycodone Screen (NEGATIVE) Urine Methadone Screen (NEGATIVE) Ur Barbiturates Screen (NEGATIVE) Ur Phencyclidine Scrn (NEGATIVE) Ur Amphetamine Screen (NEGATIVE) U Methamphetamines Scrn (NEGATIVE) U Benzodiazepines Scrn (NEGATIVE) U Cocaine Metab Screen (NEGATIVE) U Marijuana (THC) Screen (NEGATIVE) 07/19/17 07/19/17 Range/Units 13:50 13:50 WBC (4.0-11.0) K/uL RBC (4.50-5.90) M/uL Hgb (13.0-17.0) g/dL Hct (38.0-50.0) % MCV (80.0-98.0) fL MCH (27.0-32.0) pg MCHC (31.0-37.0) g/dL RDW Std Deviation (28.0-62.0) fl RDW Coeff of Dmitri (11.0-15.0) % Plt Count (150-400) K/uL MPV (7.40-12.00) fL Neut % (Auto) (48.0-80.0) % Lymph % (Auto) (16.0-40.0) % [place] % (Auto) (0.0-15.0) % Eos % (Auto) (0.0-7.0) % Baso % (Auto) (0.0-1.5) % Neut # (Auto) (1.4-5.7) K/uL Lymph # (Auto) (0.6-2.4) K/uL [place] # (Auto) (0.0-0.8) K/uL Eos # (Auto) (0.0-0.7) K/uL Baso # (Auto) (0.0-0.1) K/uL Nucleated RBC % /100WBC Nucleated RBCs # K/uL INR Sodium (136-148) mmol/L Potassium (3.5-5.1) mmol/L Chloride (98-107) mmol/L Carbon Dioxide (21.0-32.0) mmol/L BUN (7.0-18.0) mg/dL Creatinine (0.8-1.3) mg/dL Est Cr Clr Drug Dosing Estimated GFR (MDRD) ml/min Glucose (74-106) mg/dL Uric Acid (2.6-7.2) mg/dL Calcium (8.5-10.1) mg/dL Total Bilirubin (0.2-1.0) mg/dL AST (15-37) IU/L ALT (14-63) IU/L Alkaline Phosphatase (46-116) U/L Total Protein (6.4-8.2) g/dL Albumin (3.4-5.0) g/dL Globulin (2.0-3.5) g/dL Albumin/Globulin Ratio (1.3-2.8) Urine Color YELLOW Urine Appearance CLEAR Urine pH 6.0 (5.0-8.0) Ur Specific [place] 1.020 (1.001-1.035) Urine Protein NEGATIVE (NEGATIVE) mg/dL Urine Glucose (UA) NEGATIVE (NEGATIVE) mg/dL Urine Ketones NEGATIVE (NEGATIVE) mg/dL Urine Occult Blood NEGATIVE (NEGATIVE) Urine Nitrite NEGATIVE (NEGATIVE) Urine Bilirubin NEGATIVE (NEGATIVE) Urine Urobilinogen 0.2 (<2.0) EU/dL Ur Leukocyte Esterase NEGATIVE (NEGATIVE) Urine RBC 0-1 (0-2/HPF) Urine WBC 0-1 (0-5/HPF) Ur Epithelial Cells RARE (NONE-FEW) Urine Bacteria RARE (NEGATIVE) Urine Opiates Screen NEGATIVE (NEGATIVE) Ur Oxycodone Screen NEGATIVE (NEGATIVE) Urine Methadone Screen NEGATIVE (NEGATIVE) Ur Barbiturates Screen NEGATIVE (NEGATIVE) Ur Phencyclidine Scrn NEGATIVE (NEGATIVE) Ur Amphetamine Screen NEGATIVE (NEGATIVE) U Methamphetamines Scrn POSITIVE (NEGATIVE) U Benzodiazepines Scrn NEGATIVE (NEGATIVE) U Cocaine Metab Screen NEGATIVE (NEGATIVE) U Marijuana (THC) Screen NEGATIVE (NEGATIVE) Result Diagrams: 07/20/17 05:56 07/20/17 05:56 - Problem List (1) Pseudogout of elbow SNOMED Code(s): 171047262, 921682155 ICD Code: M11.229 - OTHER CHONDROCALCINOSIS, UNSPECIFIED ELBOW Status: Acute Current Visit: Yes Qualifiers: Laterality: right Qualified Code(s): M11.221 - Other chondrocalcinosis, right elbow (2) Joint swelling SNOMED Code(s): 920793628 ICD Code: M25.40 - EFFUSION, UNSPECIFIED JOINT Status: Acute Current Visit: Yes Problem List Initiated/Reviewed/Updated: Yes Orders Last 24hrs: Active Orders 24 hr Category Date Time Status Patient Status [ADT] Stat ADT 07/19/17 15:31 Active Communication Order [RC] PER UNIT ROUTINE Care 07/19/17 16:52 Active Oxygen Therapy [RC] PRN Care 07/19/17 16:48 Active Pulse Oximetry [RC] PRN Care 07/19/17 16:48 Active RT Aerosol Therapy [RC] ASDIRECTED Care 07/19/17 16:50 Active Up ad Mini [RC] ASDIRECTED Care 07/19/17 16:48 Active VTE/DVT Education [RC] PER UNIT ROUTINE Care 07/19/17 16:48 Active Vital Signs [RC] Q4H Care 07/19/17 16:48 Active Regular Diet [DIET] Diet 07/19/17 Dinner Active BASIC METABOLIC PANEL,BMP [CHEM] AM Lab 07/20/17 05:11 Ordered BASIC METABOLIC PANEL,BMP [CHEM] AM Lab 07/21/17 05:11 Ordered BASIC METABOLIC PANEL,BMP [CHEM] AM Lab 07/22/17 05:11 Ordered BASIC METABOLIC PANEL,BMP [CHEM] AM Lab 07/23/17 05:11 Ordered BASIC METABOLIC PANEL,BMP [CHEM] AM Lab 07/24/17 05:11 Ordered CBC W/O DIFF,HEMOGRAM [HEME] AM Lab 07/20/17 05:11 Ordered CBC W/O DIFF,HEMOGRAM [HEME] AM Lab 07/21/17 05:11 Ordered CBC W/O DIFF,HEMOGRAM [HEME] AM Lab 07/22/17 05:11 Ordered CBC W/O DIFF,HEMOGRAM [HEME] AM Lab 07/23/17 05:11 Ordered CBC W/O DIFF,HEMOGRAM [HEME] AM Lab 07/24/17 05:11 Ordered CULTURE BLOOD [BC] Stat Lab 07/19/17 11:41 Received CULTURE BLOOD [BC] Stat Lab 07/19/17 12:08 Received DRUG SCREEN, URINE [URCHEM] Stat Lab 07/19/17 13:50 Ordered UA W/MICROSCOPIC [URIN] Stat Lab 07/19/17 13:50 Ordered Albuterol/Ipratropium [DuoNeb 3.0-0.5 MG/3 ML] Med 07/19/17 16:48 Active 3 ml NEB Q4HRRT PRN Enoxaparin [Lovenox] Med 07/19/17 17:00 Active 40 mg SUBCUT Q24H Lactated Ringers [Ringers, Lactated] 1,000 ml Med 07/19/17 17:00 Active IV ASDIRECTED Morphine Med 07/19/17 16:48 Active 2 mg IVPUSH Q2H PRN Sodium Chloride 0.9% [Saline Flush] Med 07/19/17 11:23 Active 10 ml FLUSH ASDIRECTED PRN Sodium Chloride 0.9% [Saline Flush] Med 07/19/17 16:48 Active 10 ml FLUSH ASDIRECTED PRN Sodium Chloride 0.9% [Saline Flush] Med 07/19/17 11:23 Active 2.5 ml FLUSH ASDIRECTED PRN Sodium Chloride 0.9% [Saline Flush] Med 07/19/17 16:48 Active 2.5 ml FLUSH ASDIRECTED PRN Blood Culture x2 Reflex Set [OM.PC] Stat Oth 07/19/17 11:23 Ordered Peripheral IV Insertion Adult [OM.PC] Routine Oth 07/19/17 16:48 Ordered Saline Lock Insert [OM.PC] Stat Oth 07/19/17 11:22 Ordered Sequential Compression Device [OM.PC] Per Unit Routine Oth 07/19/17 16:48 Ordered Resuscitation Status Routine Resus Stat 07/19/17 16:48 Ordered Medication Orders Albuterol/Ipratropium (Duoneb 3.0-0.5 Mg/3 Ml) 3 ml NEB Q4HRRT PRN PRN Reason: Shortness Of Breath/wheezing Enoxaparin Sodium (Lovenox) 40 mg SUBCUT Q24H [facility] Last Admin: 07/19/17 17:24 Dose: 40 mg Lactated Ringer's (Ringers, Lactated) 1,000 mls @ 125 mls/hr IV ASDIRECTED [facility] Last Admin: 07/19/17 17:18 Dose: 125 mls/hr Morphine Sulfate (Morphine) 2 mg IVPUSH Q2H PRN PRN Reason: Pain (severe 7-10) Stop: 07/20/17 16:49 Last Admin: 07/19/17 17:11 Dose: 2 mg Sodium Chloride (Saline Flush) 10 ml FLUSH ASDIRECTED PRN PRN Reason: Keep Vein Open Sodium Chloride (Saline Flush) 2.5 ml FLUSH ASDIRECTED PRN PRN Reason: Keep Vein Open Sodium Chloride (Saline Flush) 10 ml FLUSH ASDIRECTED PRN PRN Reason: Keep Vein Open Sodium Chloride (Saline Flush) 2.5 ml FLUSH ASDIRECTED PRN PRN Reason: Keep Vein Open Assessment/Plan Comment:: Assessment and plan 1) pseudogout possible septic joint as WBC is 15 thousands at admission 2) COPD exac 3)DVT prof 4) GI prof plan will admit patient to medical surge and will start patient on solumedrol 60 mg iv q 6 h ,which will adress the pseudogout also the copd . zosyn 4.5 grams q 6 h and vancomycin pharmacy to dose it for possible joint infection. also the zosyn will cover patient for COPD. will order blood culture prior to antibiotic initiation. protonix 40 mg po daily for GI prophylaxis , heparin sq for dvt prophylaxis
[2017-07-19] MEDS: Pantoprazole 40 MG Tab.CR PO SCH (19:56)
[2017-07-19] MEDS: Piperacillin/Tazobactam 4.5 GM in Sodium Chloride 0.9% 100 ML IV SCH (19:57)
[2017-07-19] MEDS: Vancomycin 1.5 GM in Sodium Chloride 0.9% 500 ML IV SCH (21:55)
[2017-07-19] MEDS: methylPREDNISolone Sodium Succinate 40 MG/1 ML SDV IVPUSH SCH (23:02)
[2017-07-20] MEDS: Piperacillin/Tazobactam 4.5 GM in Sodium Chloride 0.9% 100 ML IV SCH ×4 (02:30→19:37)
[2017-07-20] MEDS: Lactated Ringers 1,000 ML IV SCH ×2 (04:14→19:36)
[2017-07-20] MEDS: methylPREDNISolone Sodium Succinate 40 MG/1 ML SDV IVPUSH SCH ×4 (04:16→23:43)
[2017-07-20] MEDS: Vancomycin 1.5 GM in Sodium Chloride 0.9% 500 ML IV SCH ×3 (04:20→21:08)
[2017-07-20] MEDS: Pantoprazole 40 MG Tab.CR PO SCH (06:35)
[2017-07-20 07:11] LABS: CHLORIDE,CL 104 mmol/L (98-107); SODIUM,NA 137 mmol/L (136-148)
[2017-07-20] MEDS: Morphine 10 MG/ML Syringe IVPUSH PRN ×4 (09:10→23:32)
[2017-07-20] MEDS ORDERED: Nicotine 14 MG/24 Hr Patch TRDERM ONE (13:52)
--- NOTE | 2017-07-20 15:50 | PCM.PN ---
- General Info Date of Service: 07/20/17 Admission Dx/Problem (Free Text): Admission Diagnosis/Problem Admission Diagnosis/Problem Cellulitis and abscess of arm Subjective Update: Patient is feeling better today . His rt elbow swelling decreased , increased range of motion rt elbow. He is a little bit agitated , urine analysis at admission showed methamphetamines. - Review of Systems General: Reports: No Symptoms HEENT: Reports: No Symptoms Pulmonary: Reports: Cough, Sputum, Wheezing Cardiovascular: Reports: No Symptoms Genitourinary: Reports: No Symptoms Musculoskeletal: Reports: No Symptoms Skin: Reports: Other (erythema) Neurological: Reports: No Symptoms Psychiatric: Reports: No Symptoms - Patient Data Vitals - Most Recent: Last Vital Signs Temp 98.3 F 07/20/17 12:00 Pulse 88 07/20/17 12:00 Resp 22 H 07/20/17 12:00 BP 126/69 07/20/17 12:00 Pulse Ox 95 07/20/17 12:00 Weight - Most Recent: 199 lb 11.2 oz I&O - Last 24 Hours: Intake & Output 07/20/17 07/20/17 07/20/17 06:59 14:59 22:59 Intake Total 1965 Output Total 1700 Balance 265 Lab Results Last 24 Hours: Laboratory Results - last 24 hr 07/20/17 07/20/17 Range/Units 05:56 05:56 WBC 15.79 H (4.0-11.0) K/uL RBC 5.10 (4.50-5.90) M/uL Hgb 14.8 (13.0-17.0) g/dL Hct 44.1 (38.0-50.0) % MCV 86.5 (80.0-98.0) fL MCH 29.0 (27.0-32.0) pg MCHC 33.6 (31.0-37.0) g/dL RDW Std Deviation 43.2 (28.0-62.0) fl RDW Coeff of Dmitri 14 (11.0-15.0) % Plt Count 223 (150-400) K/uL MPV 10.70 (7.40-12.00) fL Nucleated RBC % 0.0 /100WBC Nucleated RBCs # 0 K/uL Sodium 137 (136-148) mmol/L Potassium 4.0 (3.5-5.1) mmol/L Chloride 104 (98-107) mmol/L Carbon Dioxide 25.3 (21.0-32.0) mmol/L BUN 9 (7.0-18.0) mg/dL Creatinine 0.9 (0.8-1.3) mg/dL Est Cr Clr Drug Dosing 125.58 mL/min Estimated GFR (MDRD) > 60.0 ml/min Glucose 170 H (74-106) mg/dL Calcium 8.7 (8.5-10.1) mg/dL [place] Results Last 24 Hours: Microbiology 07/19/17 12:08 Aerobic Blood Culture - Preliminary Blood - Venous - Lab Draw NO GROWTH AFTER 1 DAY Anaerobic Blood Culture - Preliminary NO GROWTH AFTER 1 DAY 07/19/17 11:41 Aerobic Blood Culture - Preliminary Blood - Venous NO GROWTH AFTER 1 DAY Anaerobic Blood Culture - Preliminary Med Orders - Current: Current Medications Albuterol/Ipratropium (Duoneb 3.0-0.5 Mg/3 Ml) 3 ml NEB Q4HRRT PRN PRN Reason: Shortness Of Breath/wheezing Albuterol/Ipratropium (Duoneb 3.0-0.5 Mg/3 Ml) 3 ml NEB Q4HRRT PRN PRN Reason: sob , wheezing Enoxaparin Sodium (Lovenox) 40 mg SUBCUT Q24H [facility] Last Admin: 07/19/17 17:24 Dose: 40 mg Lactated Ringer's (Ringers, Lactated) 1,000 mls @ 125 mls/hr IV ASDIRECTED [facility] Last Admin: 07/20/17 04:14 Dose: 125 mls/hr Piperacillin Sod/Tazobactam (Sod 4.5 gm/ Sodium Chloride) 100 mls @ 100 mls/hr IV Q6H [facility] Last Admin: 07/20/17 14:03 Dose: 100 mls/hr Vancomycin HCl 1.5 gm/ Sodium (Chloride) 500 mls @ 333.333 mls/hr IV Q8H [facility] Last Admin: 07/20/17 12:31 Dose: 333.333 mls/hr Methylprednisolone Sodium Succinate (Solu-Medrol) 60 mg IVPUSH Q6H [facility] Last Admin: 07/20/17 14:03 Dose: 60 mg Morphine Sulfate (Morphine) 2 mg IVPUSH Q2H PRN PRN Reason: Pain (severe 7-10) Stop: 07/20/17 16:49 Last Admin: 07/20/17 09:10 Dose: 2 mg Pantoprazole Sodium (Protonix) 40 mg PO ACBREAKFAST [facility] Last Admin: 07/20/17 06:35 Dose: 40 mg Sodium Chloride (Saline Flush) 10 ml FLUSH ASDIRECTED PRN PRN Reason: Keep Vein Open Sodium Chloride (Saline Flush) 2.5 ml FLUSH ASDIRECTED PRN PRN Reason: Keep Vein Open Sodium Chloride (Saline Flush) 10 ml FLUSH ASDIRECTED PRN PRN Reason: Keep Vein Open Sodium Chloride (Saline Flush) 2.5 ml FLUSH ASDIRECTED PRN PRN Reason: Keep Vein Open Vancomycin HCl (Pharmacy To Dose - Vancomycin) 0 dose .XX ASDIRECTED [facility] Discontinued Medications Diphenhydramine HCl (Benadryl) 25 mg IVPUSH ONETIME ONE Stop: 07/19/17 11:38 Last Admin: 07/19/17 11:56 Dose: 25 mg Sodium Chloride (Normal Saline) 1,000 mls @ 999 mls/hr IV STAT ONE Stop: 07/19/17 12:37 Last Infusion: 07/19/17 14:00 Dose: Infused Piperacillin Sod/Tazobactam (Sod 3.375 gm/ Sodium Chloride) 50 mls @ 100 mls/ hr IV ONETIME ONE Stop: 07/19/17 12:34 Last Admin: 07/19/17 13:57 Dose: 100 mls/hr Vancomycin HCl 1 gm/ Sodium (Chloride) 250 mls @ 250 mls/hr IV ONETIME ONE Stop: 07/19/17 13:04 Last Admin: 07/19/17 12:12 Dose: 250 mls/hr Ketorolac Tromethamine (Toradol) 30 mg IVPUSH ONETIME ONE Stop: 07/19/17 11:38 Last Admin: 07/19/17 11:53 Dose: 30 mg Methylprednisolone Sodium Succinate (Solu-Medrol) 125 mg IVPUSH ONETIME ONE Stop: 07/19/17 16:52 Last Admin: 07/19/17 17:21 Dose: 125 mg Morphine Sulfate (Morphine) 2 mg IVPUSH ONETIME ONE Stop: 07/19/17 11:38 Last Admin: 07/19/17 11:59 Dose: 2 mg Morphine Sulfate (Morphine) 2 mg IVPUSH ONETIME ONE Stop: 07/19/17 13:44 Last Admin: 07/19/17 13:53 Dose: 2 mg Nicotine (Habitrol) 14 mg TRDERM Q24H ONE Stop: 07/20/17 13:53 Last Admin: 07/20/17 14:03 Dose: 14 mg - Exam Quality Assessment: Supplemental Oxygen General: Alert, Oriented HEENT: Pupils Equal, Pupils Reactive Neck: Supple, Trachea Midline, No JVD Lungs: Wheezing Cardiovascular: Regular Rate, Regular Rhythm, No Murmurs GI/Abdominal Exam: Normal Bowel Sounds, Soft, Non-Tender, No Organomegaly, No Distention, No Abnormal Bruit Back Exam: Normal Inspection Extremities: Joint Swelling, Arm Pain, Increased Warmth, Redness Skin: Warm, Dry Neurological: No New Focal Deficit Psy/Mental Status: Alert, Normal Affect, Normal Mood - Problem List & Annotations (1) COPD with exacerbation SNOMED Code(s): 595313217 Code(s): J44.1 - CHRONIC OBSTRUCTIVE PULMONARY DISEASE W (ACUTE) EXACERBATION Status: Acute Current Visit: Yes (2) Pseudogout of elbow SNOMED Code(s): 106383540, 025963467 Code(s): M11.229 - OTHER CHONDROCALCINOSIS, UNSPECIFIED ELBOW Status: Acute Current Visit: Yes Qualifiers: Laterality: right Qualified Code(s): M11.221 - Other chondrocalcinosis, right elbow (3) Drug abuse SNOMED Code(s): 84329168 Code(s): F19.10 - OTHER PSYCHOACTIVE SUBSTANCE ABUSE, UNCOMPLICATED Status : Acute Current Visit: Yes (4) Joint swelling SNOMED Code(s): 674685780 Code(s): M25.40 - EFFUSION, UNSPECIFIED JOINT Status: Acute Current Visit : Yes (5) Cellulitis SNOMED Code(s): 069883849 Code(s): L03.90 - CELLULITIS, UNSPECIFIED Status: Acute Current Visit: Yes Qualifiers: Site of cellulitis: extremity Site of cellulitis of extremity: upper extremity Laterality: right Qualified Code(s): L03.113 - Cellulitis of right upper limb - Problem List Review Problem List Initiated/Reviewed/Updated: Yes - My Orders Last 24 Hours: My Active Orders 07/19/17 16:48 Oxygen Therapy [RC] PRN Pulse Oximetry [RC] PRN Up ad Mini [RC] ASDIRECTED VTE/DVT Education [RC] PER UNIT ROUTINE Vital Signs [RC] Q4H Albuterol/Ipratropium [DuoNeb 3.0-0.5 MG/3 ML] 3 ml NEB Q4HRRT PRN Morphine 2 mg IVPUSH Q2H PRN Sodium Chloride 0.9% [Saline Flush] 10 ml FLUSH ASDIRECTED PRN Sodium Chloride 0.9% [Saline Flush] 2.5 ml FLUSH ASDIRECTED PRN Peripheral IV Insertion Adult [OM.PC] Routine Sequential Compression Device [OM.PC] Per Unit Routine Resuscitation Status Routine 07/19/17 16:50 RT Aerosol Therapy [RC] ASDIRECTED 07/19/17 16:52 Communication Order [RC] PER UNIT ROUTINE 07/19/17 17:00 Enoxaparin [Lovenox] 40 mg SUBCUT Q24H Lactated Ringers [Ringers, Lactated] 1,000 ml IV ASDIRECTED 07/19/17 19:18 RT Aerosol Therapy [RC] ASDIRECTED Albuterol/Ipratropium [DuoNeb 3.0-0.5 MG/3 ML] 3 ml NEB Q4HRRT PRN 07/19/17 19:19 Pantoprazole [ProTONIX] 40 mg PO ACBREAKFAST 07/19/17 20:00 Piperacillin/Tazobactam [Piperacil-Tazobact] 4.5 gm Sodium Chloride 0.9% [ Normal Saline] 100 ml IV Q6H 07/19/17 21:00 Vancomycin 1.5 gm Sodium Chloride 0.9% [Normal Saline] 500 ml IV Q8H Vancomycin Pharmacy to Dose [Pharmacy to Dose - Vancomycin] See Dose Instructions .XX ASDIRECTED 07/19/17 23:00 methylPREDNISolone Sod Succ [Solu-MEDROL] 60 mg IVPUSH Q6H 07/19/17 Dinner Regular Diet [DIET] 07/21/17 05:11 BASIC METABOLIC PANEL,BMP [CHEM] AM CBC W/O DIFF,HEMOGRAM [HEME] AM 07/22/17 05:11 BASIC METABOLIC PANEL,BMP [CHEM] AM CBC W/O DIFF,HEMOGRAM [HEME] AM 07/23/17 05:11 BASIC METABOLIC PANEL,BMP [CHEM] AM CBC W/O DIFF,HEMOGRAM [HEME] AM 07/24/17 05:11 BASIC METABOLIC PANEL,BMP [CHEM] AM CBC W/O DIFF,HEMOGRAM [HEME] AM - Assessment Assessment:: Assessment and plan 1) pseudogout of the right elbow-improving- will continue with iv solumedrol 2) COPD exac- will continue iv solumedrol ,. duoneb neb treatment, zosyn iv 3) cellulites of the left elbow- vancomycin Iv , zosyn iv , f/up BC 4) methamphetamine abuse - ativan 2 mg iv q4-6 h prn for agitation 5) tobacco abuse - nicitine patch DVT prof - heparin sq Gi prof - protonix 40 mg po with breakfast
[2017-07-20] MEDS ORDERED: LORazepam 2 MG/ML SDV IVPUSH PRN (16:17)
[2017-07-20] MEDS: Enoxaparin 40 MG/0.4 ML Syringe SUBCUT SCH (16:39)
[2017-07-21] MEDS: Piperacillin/Tazobactam 4.5 GM in Sodium Chloride 0.9% 100 ML IV SCH ×3 (01:04→16:51)
[2017-07-21] MEDS: Morphine 4 MG/ML Syringe IVPUSH PRN ×2 (04:01→13:03)
[2017-07-21] MEDS: methylPREDNISolone Sodium Succinate 40 MG/1 ML SDV IVPUSH SCH ×3 (04:03→16:57)
[2017-07-21] MEDS: Vancomycin 1.5 GM in Sodium Chloride 0.9% 500 ML IV SCH ×2 (04:05→14:21)
[2017-07-21 06:40] LABS: CHLORIDE,CL 107 mmol/L (98-107); SODIUM,NA 141 mmol/L (136-148)
[2017-07-21] MEDS: Pantoprazole 40 MG Tab.CR PO SCH (07:20)
[2017-07-21] MEDS: Lactated Ringers 1,000 ML IV SCH (10:03)
[2017-07-21] MEDS ORDERED: Vancomycin 1.75 GM in Sodium Chloride 0.9% 500 ML IV SCH (14:00)
[2017-07-21 16:32] VITALS: BP 129/74
[2017-07-21] MEDS: Enoxaparin 40 MG/0.4 ML Syringe SUBCUT SCH (16:57)
--- NOTE | 2017-07-21 17:58 | PCM.DCSUM1 ---
Discharge Summary - Discharge Data Discharge Disposition: Home, Self-Care 01 Condition: Stable - Discharge Diagnosis/Problem(s) (1) COPD with exacerbation SNOMED Code(s): 620911044 ICD Code: J44.1 - CHRONIC OBSTRUCTIVE PULMONARY DISEASE W (ACUTE) EXACERBATION Status: Acute Current Visit: Yes (2) Pseudogout of elbow SNOMED Code(s): 095324261, 591276668 ICD Code: M11.229 - OTHER CHONDROCALCINOSIS, UNSPECIFIED ELBOW Status: Acute Current Visit: Yes Qualifiers: Laterality: right Qualified Code(s): M11.221 - Other chondrocalcinosis, right elbow (3) Drug abuse SNOMED Code(s): 64993877 ICD Code: F19.10 - OTHER PSYCHOACTIVE SUBSTANCE ABUSE, UNCOMPLICATED Status : Acute Current Visit: Yes (4) Joint swelling SNOMED Code(s): 438913996 ICD Code: M25.40 - EFFUSION, UNSPECIFIED JOINT Status: Acute Current Visit: Yes (5) Cellulitis SNOMED Code(s): 450934847 ICD Code: L03.90 - CELLULITIS, UNSPECIFIED Status: Acute Current Visit: Yes Qualifiers: Site of cellulitis: extremity Site of cellulitis of extremity: upper extremity Laterality: right Qualified Code(s): L03.113 - Cellulitis of right upper limb - Patient Instructions Diet: Usual Diet as Tolerated Activity: As Tolerated Driving: May Drive Today Showering/Bathing: May Shower - Discharge Plan Prescriptions/Med Rec: Albuterol [Ventolin HFA] 1 puff INH Q4H PRN 30 Days #1 inhaler PRN Reason: sob Doxycycline [Vibramycin] 100 mg PO DAILY 7 Days #7 tab Fluticasone/Salmeterol [Advair 250-50 Diskus] 1 each IH BID #1 disk.w.dev Naproxen 375 mg PO BID 7 Days #14 tablet. Pantoprazole [ProTONIX] 40 mg PO DAILY 10 Days #10 tab.cr predniSONE [Prednisone] 50 mg PO DAILY 4 Days #4 tablet Tiotropium [Spiriva] 1 puff INH DAILY 30 Days #1 kit Home Medications: Home Meds Albuterol [Ventolin HFA] 1 puff INH Q4H PRN 30 Days #1 inhaler 07/21/17 [Rx] Doxycycline [Vibramycin] 100 mg PO DAILY 7 Days #7 tab 07/21/17 [Rx] Fluticasone/Salmeterol [Advair 250-50 Diskus] 1 each IH BID #1 disk.w.dev [Rx] Naproxen 375 mg PO BID 7 Days #14 tablet.dr 07/21/17 [Rx] Pantoprazole [ProTONIX] 40 mg PO DAILY 10 Days #10 tab.cr 07/21/17 [Rx] Tiotropium [Spiriva] 1 puff INH DAILY 30 Days #1 kit 07/21/17 [Rx] predniSONE [Prednisone] 50 mg PO DAILY 4 Days #4 tablet 07/21/17 [Rx] Patient Handouts: Cellulitis, Adult, Fluticasone; Salmeterol inhalation powder , Doxycycline tablets or capsules, Tiotropium inhalation powder, Pantoprazole tablets, Albuterol; Ipratropium solution for inhalation, Prednisone tablets Forms: ED Department Discharge Referrals: Darryn Churchill MD [Primary Care Provider] - (follow-up in 1 week) - Patient Data Vitals - Most Recent: Last Vital Signs Temp 97.4 F 07/21/17 16:00 Pulse 88 07/21/17 16:00 Resp 22 H 07/21/17 16:00 BP 129/74 07/21/17 16:00 Pulse Ox 94 L 07/21/17 16:00 Weight - Most Recent: 199 lb 11.2 oz I&O - Last 24 hours: Intake & Output 07/21/17 07/21/17 07/21/17 06:59 14:59 22:59 Intake Total 2826 Balance 2826 Lab Results - Last 24 hrs: Laboratory Results - last 24 hr 07/21/17 07/21/17 07/21/17 Range/Units 06:03 06:03 12:15 WBC 14.34 H (4.0-11.0) K/uL RBC 5.04 (4.50-5.90) M/uL Hgb 14.3 (13.0-17.0) g/dL Hct 44.0 (38.0-50.0) % MCV 87.3 (80.0-98.0) fL MCH 28.4 (27.0-32.0) pg MCHC 32.5 (31.0-37.0) g/dL RDW Std Deviation 44.9 (28.0-62.0) fl RDW Coeff of Dmitri 14 (11.0-15.0) % Plt Count 240 (150-400) K/uL MPV 10.80 (7.40-12.00) fL Nucleated RBC % 0.0 /100WBC Nucleated RBCs # 0 K/uL Sodium 141 (136-148) mmol/L Potassium 3.9 (3.5-5.1) mmol/L Chloride 107 (98-107) mmol/L Carbon Dioxide 28.2 (21.0-32.0) mmol/L BUN 14 (7.0-18.0) mg/dL Creatinine 0.9 (0.8-1.3) mg/dL Est Cr Clr Drug Dosing 125.58 mL/min Estimated GFR (MDRD) > 60.0 ml/min Glucose 164 H (74-106) mg/dL Calcium 8.5 (8.5-10.1) mg/dL Vancomycin Trough 6.4 (5.0-10.0) ug/mL ANITA Results - Last 24 hrs: Microbiology 07/19/17 12:08 Aerobic Blood Culture - Preliminary Blood - Venous - Lab Draw NO GROWTH AFTER 2 DAYS Anaerobic Blood Culture - Preliminary NO GROWTH AFTER 2 DAYS 07/19/17 11:41 Aerobic Blood Culture - Preliminary Blood - Venous NO GROWTH AFTER 2 DAYS Anaerobic Blood Culture - Preliminary Med Orders - Current: Current Medications Albuterol/Ipratropium (Duoneb 3.0-0.5 Mg/3 Ml) 3 ml NEB Q4HRRT PRN PRN Reason: Shortness Of Breath/wheezing Albuterol/Ipratropium (Duoneb 3.0-0.5 Mg/3 Ml) 3 ml NEB Q4HRRT PRN PRN Reason: sob , wheezing Enoxaparin Sodium (Lovenox) 40 mg SUBCUT Q24H [facility] Last Admin: 07/21/17 16:57 Dose: Not Given Lactated Ringer's (Ringers, Lactated) 1,000 mls @ 125 mls/hr IV ASDIRECTED [facility] Last Admin: 07/21/17 10:03 Dose: 125 mls/hr Piperacillin Sod/Tazobactam (Sod 4.5 gm/ Sodium Chloride) 100 mls @ 100 mls/hr IV Q6H [facility] Last Admin: 07/21/17 16:51 Dose: 100 mls/hr Vancomycin HCl 1.75 gm/ Sodium (Chloride) 500 mls @ 250 mls/hr IV Q8H [facility] Last Admin: 07/21/17 13:50 Dose: 250 mls/hr Lorazepam (Ativan) 2 mg IVPUSH Q6H PRN PRN Reason: Agitation Methylprednisolone Sodium Succinate (Solu-Medrol) 60 mg IVPUSH Q6H [facility] Last Admin: 07/21/17 16:57 Dose: 60 mg Morphine Sulfate (Morphine) 2 mg IVPUSH Q2H PRN PRN Reason: Pain Last Admin: 07/21/17 13:03 Dose: 2 mg Pantoprazole Sodium (Protonix) 40 mg PO ACBREAKFAST [facility] Last Admin: 07/21/17 07:20 Dose: 40 mg Sodium Chloride (Saline Flush) 10 ml FLUSH ASDIRECTED PRN PRN Reason: Keep Vein Open Sodium Chloride (Saline Flush) 2.5 ml FLUSH ASDIRECTED PRN PRN Reason: Keep Vein Open Sodium Chloride (Saline Flush) 10 ml FLUSH ASDIRECTED PRN PRN Reason: Keep Vein Open Sodium Chloride (Saline Flush) 2.5 ml FLUSH ASDIRECTED PRN PRN Reason: Keep Vein Open Vancomycin HCl (Pharmacy To Dose - Vancomycin) 0 dose .XX ASDIRECTED [facility] Discontinued Medications Diphenhydramine HCl (Benadryl) 25 mg IVPUSH ONETIME ONE Stop: 07/19/17 11:38 Last Admin: 07/19/17 11:56 Dose: 25 mg Sodium Chloride (Normal Saline) 1,000 mls @ 999 mls/hr IV STAT ONE Stop: 07/19/17 12:37 Last Infusion: 07/19/17 14:00 Dose: Infused Piperacillin Sod/Tazobactam (Sod 3.375 gm/ Sodium Chloride) 50 mls @ 100 mls/ hr IV ONETIME ONE Stop: 07/19/17 12:34 Last Admin: 07/19/17 13:57 Dose: 100 mls/hr Vancomycin HCl 1 gm/ Sodium (Chloride) 250 mls @ 250 mls/hr IV ONETIME ONE Stop: 07/19/17 13:04 Last Admin: 07/19/17 12:12 Dose: 250 mls/hr Vancomycin HCl 1.5 gm/ Sodium (Chloride) 500 mls @ 333.333 mls/hr IV Q8H [facility] Last Admin: 07/21/17 14:21 Dose: Not Given Ketorolac Tromethamine (Toradol) 30 mg IVPUSH ONETIME ONE Stop: 07/19/17 11:38 Last Admin: 07/19/17 11:53 Dose: 30 mg Methylprednisolone Sodium Succinate (Solu-Medrol) 125 mg IVPUSH ONETIME ONE Stop: 07/19/17 16:52 Last Admin: 07/19/17 17:21 Dose: 125 mg Morphine Sulfate (Morphine) 2 mg IVPUSH ONETIME ONE Stop: 07/19/17 11:38 Last Admin: 07/19/17 11:59 Dose: 2 mg Morphine Sulfate (Morphine) 2 mg IVPUSH ONETIME ONE Stop: 07/19/17 13:44 Last Admin: 07/19/17 13:53 Dose: 2 mg Morphine Sulfate (Morphine) 2 mg IVPUSH Q2H PRN PRN Reason: Pain (severe 7-10) Stop: 07/20/17 16:49 Last Admin: 07/20/17 16:38 Dose: 2 mg Morphine Sulfate (Morphine) 2 mg IVPUSH Q2H PRN PRN Reason: Pain Last Admin: 07/20/17 23:32 Dose: 2 mg Nicotine (Habitrol) 14 mg TRDERM Q24H ONE Stop: 07/20/17 13:53 Last Admin: 07/20/17 14:03 Dose: 14 mg
--- NOTE | 2017-07-22 14:29 | US ---
EXAM DATE: 07/19/17 PATIENT'S AGE: 42 Patient: SIA BRAY Facility: [place], [place] Site . Site : 1975 Study: US Extremity Right [id number]/20/2018 12:50:48 PM Ordering Physician: Sid Mann Final Report: INDICATION: Redness, swelling, pain in the right upper extremity, evaluate for deep venous thrombosis. COMPARISON: None available. TECHNIQUE: Duplex venous ultrasound estimation of the right upper extremity was performed of the deep veins with 2D and spectral analysis and color Doppler imaging. Pre and post compression images were obtained percent specific protocol. FINDINGS: In the right upper extremity the right upper extremity the subclavian vein is patent on the color and grayscale analysis. No spectral analysis was performed of the subclavian vein. The brachial, cephalic, and basilic veins are patent and compressible. The antecubital and radial veins are patent and compressible were reimaged in the lower arm. The contralateral side was not imaged. IMPRESSION: Sonographic exam negative for thrombosis in the right upper extremity. Dictated by Misael Call MD @ Jul 21 2017 1:56PM (Electronic Signature) Report Signed by Proxy. ERIBERTO
== END 2017-07-21 18:00 | disposition home or self-care (01) ==
LOC: MW.ED 11:10 → MW.MS 16:14
PROVIDERS: ADMIT Internal Medicine; ATTEND Internal Medicine
DX: M11.221 Other chondrocalcinosis, right elbow (principal); J44.1 Chronic obstructive pulmonary disease with (acute) exacerbation; F19.10 Other psychoactive substance abuse, uncomplicated; M25.40 Effusion, unspecified joint; L03.113 Cellulitis of right upper limb; F17.210 Nicotine dependence, cigarettes, uncomplicated; Z79.899 Other long term (current) drug therapy; Z88.5 Allergy status to narcotic agent
CPT/HCPCS: 36415; 71046; 73080; 80048; 80053; 80202; 80305; 81001; 84550; 85025; 85027; 85610; 87040; 87186; 93971; 96361; 96365; 96366; 96367; 96375; 96376; 99284; A9270; G0378; J1200; J1650; J1885; J2270; J2543; J2920; J2930; J3370; J7030; J7040; J7050; J7120; 87077; 99283

== ENCOUNTER 2019-03-20 16:01 | Emergency (ER) | payer MEDICAID ==
--- NOTE | 2019-03-20 16:38 | EDM.PDOC ---
ED HPI GENERAL MEDICAL PROBLEM - General Chief Complaint: ENT Problem Stated Complaint: EAR INFECTION Time Seen by Provider: 03/20/19 16:37 Source of Information: Reports: Patient History Limitations: Reports: No Limitations - History of Present Illness INITIAL COMMENTS - FREE TEXT/NARRATIVE: HISTORY AND PHYSICAL: History of present illness: Patient is a 43-year-old male who presents to the ED with complaints of bilateral ear pain and dental pain. He states his ears have been bothering him over the past 2 to 3 days. Patient has chronic dental "problems" stating he has multiple cracked teeth and previous dental abscesses. He states he currently does not have insurance nor the ability to afford going to a dentist at this time but would like the antibiotic that he feels he will be prescribed for his "ear infection" to cover any dental infections he may have as well. Patient denies any fever, chills, headache, change in vision, syncope or near syncope. Denies any chest pain, back pain, shortness of breath or cough. Denies any abdominal pain, nausea, vomiting, diarrhea, constipation or dysuria. Has not noted any blood in urine or stool. Patient has been eating and drinking appropriately. Review of systems: As per history of present illness and below otherwise all systems reviewed and negative. Past medical history: As per history of present illness and as reviewed below otherwise noncontributory. Surgical history: As per history of present illness and as reviewed below otherwise noncontributory. Social history: See social history for further information Family history: As per history of present illness and as reviewed below otherwise noncontributory. Physical exam: General: HEENT: Atraumatic, normocephalic, pupils equal and reactive bilaterally, negative for conjunctival pallor or scleral icterus, mucous membranes moist, bilateral TMs are erythematous without exudate, right ear canal is tender with pulling back and does have some swelling in the canal. Throat clear, neck supple, nontender, multiple dental caries are noted, trachea midline. No drooling or trismus noted. No meningeal signs. No hot potato voice noted. Lungs: Clear to auscultation, breath sounds equal bilaterally, chest nontender. Heart: S1S2, regular rate and rhythm without overt murmur Abdomen: Soft, nondistended, nontender. Negative for masses or hepatosplenomegaly. Negative for costovertebral tenderness. Pelvis: Stable nontender. Skin: Intact, warm, dry. No lesions or rashes noted. Extremities: Atraumatic, moves all extremities per self without difficulty or deficits, negative for cords or calf pain. Neurovascular unremarkable. Neuro: Awake, alert, oriented. Cranial nerves II through XII unremarkable. Cerebellum unremarkable. Motor and sensory unremarkable throughout. Exam nonfocal. Notes: Medication and supportive care measures were reviewed and discussed. Voices understanding and is agreeable to plan of care. Denies any further questions or concerns at this time. Diagnostics: None Therapeutics: Ciprodex, Dental balls Prescription: Augmentin Impression: Dentalgia Otitis media, bilateral Otitis externa, right Plan: 1. Take the oral antibiotic as prescribed. The Ciprodex eardrops 4 drops in the right ear twice daily x7 days. 2. Tylenol and/or ibuprofen as needed for pain management. 3. Please follow-up with your primary care provider and the dentist as we discussed. Return to the ED as needed and as discussed. Definitive disposition and diagnosis as appropriate pending reevaluation and review of above. Bilateral ear Pain Score (Numeric/FACES): 10 - Related Data Allergies Allergy/AdvReac Type Severity Reaction Status Date / Time codeine Allergy Hives Verified 03/20/19 16:36 Home Meds: Home Meds . [No Known Home Meds] 03/20/19 [History] Past Medical History - Past Health History Medical/Surgical History: Denies Medical/Surgical History HEENT History: Reports: None Cardiovascular History: Reports: None Respiratory History: Reports: COPD Gastrointestinal History: Reports: None Genitourinary History: Reports: None Musculoskeletal History: Reports: None Other Musculoskeletal History: pseudo gout Neurological History: Reports: None Psychiatric History: Reports: Aggressive/Hostile Behaviors Endocrine/Metabolic History: Reports: None Hematologic History: Reports: None Immunologic History: Reports: None Oncologic (Cancer) History: Reports: None Dermatologic History: Reports: None - Infectious Disease History Infectious Disease History: Reports: None - Past Surgical History Head Surgeries/Procedures: Reports: None GI Surgical History: Reports: Other (See Below) Other GI Surgeries/Procedures: pyloric stenosis Social & Family History - Family History Family Medical History: Noncontributory - Caffeine Use Caffeine Use: Reports: Coffee, Energy Drinks, Soda ED ROS ENT - Review of Systems Review Of Systems: Comprehensive ROS is negative, except as noted in HPI. ED EXAM, ENT - Physical Exam Exam: See Below (See dictation) Course - Vital Signs Last Recorded V/S: Last Vital Signs Temp 98.9 F 03/20/19 16:37 Pulse 83 03/20/19 16:37 Resp 18 03/20/19 16:37 BP 123/67 03/20/19 16:37 Pulse Ox 99 03/20/19 16:37 - Orders/Labs/Meds Meds: Medications Discontinued Medications Generic Name Dose Route Start Last Admin Trade Name Fregurmeet PRN Reason Stop Dose Admin Benzocaine 2 each 03/20/19 16:49 03/20/19 17:29 Hurricaine One 20% MUCMEM 03/20/19 16:50 2 each ONETIME ONE Administration Ciprofloxacin/Hydrocortisone 4 ml 03/20/19 16:48 03/20/19 17:29 Cipro Hc Otic Susp EARRT 03/20/19 16:49 Not Given NOW STA Ciprofloxacin/Hydrocortisone 4 ml 03/20/19 17:09 03/20/19 17:29 Cipro Hc Otic Susp EARRT 03/20/19 17:10 1 dose NOW STA Administration Lidocaine HCl 15 ml 03/20/19 16:49 03/20/19 17:29 Xylocaine 2% Viscous PO 03/20/19 16:50 15 ml ONETIME ONE Administration Departure - Departure Time of Disposition: 16:52 Disposition: Home, Self-Care 01 Clinical Impression: Dentalgia Otitis media Qualifiers: Otitis media type: unspecified Laterality: bilateral Qualified Code(s): H66.93 - Otitis media, unspecified, bilateral Otitis externa Qualifiers: Otitis externa type: unspecified type Chronicity: unspecified Laterality: right Qualified Code(s): H60.91 - Unspecified otitis externa, right ear - Discharge Information Instructions: Otitis Media, Adult, Urol-rt-Kols Referrals: PCP,None [Primary Care Provider] - Forms: ED Department Discharge Additional Instructions: The following information is given to patients seen in the emergency department who are being discharged to home. This information is to outline your options for follow-up care. We provide all patients seen in our emergency department with a follow-up referral. The need for follow-up, as well as the timing and circumstances, are variable depending upon the specifics of your emergency department visit. If you don't have a primary care physician on staff, we will provide you with a referral. We always advise you to contact your personal physician following an emergency department visit to inform them of the circumstance of the visit and for follow-up with them and/or the need for any referrals to a consulting specialist. The emergency department will also refer you to a specialist when appropriate. This referral assures that you have the opportunity for follow-up care with a specialist. All of these measure are taken in an effort to provide you with optimal care, which includes your follow-up. Under all circumstances we always encourage you to contact your private physician who remains a resource for coordinating your care. When calling for follow-up care, please make the office aware that this follow-up is from your recent emergency room visit. If for any reason you are refused follow-up, please contact the [facility] Emergency Department at and asked to speak to the emergency department charge nurse. [facility] [address] [place] [id number] [facility] [address] [place] [address] 1. Take the oral antibiotic as prescribed. The Ciprodex eardrops 4 drops in the right ear twice daily x7 days. 2. Tylenol and/or ibuprofen as needed for pain management. 3. Please follow-up with your primary care provider and the dentist as we discussed. Return to the ED as needed and as discussed. Sepsis Event Note - Focused Exam Vital Signs: Vital Signs Temp Pulse Resp BP Pulse Ox 03/20/19 16:37 98.9 F 83 18 123/67 99 Date Exam was Performed: 03/20/19 Time Exam was Performed: 19:07
[2019-03-20 16:39] VITALS: BP 123/67; PULSE 83
[2019-03-20] MEDS ORDERED: Ciprofloxacin/Hydrocortisone Otic Susp 10 ML Bottle EARRT STA ×2 (16:48→17:09)
[2019-03-20] MEDS ORDERED: Benzocaine 20% Topical Spray UD MUCMEM ONE (16:49)
[2019-03-20] MEDS ORDERED: Lidocaine 2% Viscous Solution 15 ML Cup PO ONE (16:49)
== END 2019-03-20 17:30 | disposition home or self-care (01) ==
LOC: MW.ED 16:01
DX: H66.93 Otitis media, unspecified, bilateral (principal); K08.89 Other specified disorders of teeth and supporting structures; H60.91 Unspecified otitis externa, right ear; K02.9 Dental caries, unspecified; J44.9 Chronic obstructive pulmonary disease, unspecified; Z88.5 Allergy status to narcotic agent
CPT/HCPCS: 99282; A9270; 99284

== ENCOUNTER 2020-01-14 13:04 | Emergency (ER) | payer MEDICAID ==
--- NOTE | 2020-01-14 14:09 | EDM.PDOC ---
ED HPI GENERAL MEDICAL PROBLEM - General Chief Complaint: ENT Problem Stated Complaint: EAR PAIN Time Seen by Provider: 01/14/20 13:18 Source of Information: Reports: Patient History Limitations: Reports: No Limitations - History of Present Illness INITIAL COMMENTS - FREE TEXT/NARRATIVE: HISTORY AND PHYSICAL: History of present illness: Patient is a 44-year-old male who presents to the ED today with concern of bilateral ear pain, productive cough, and generalized body aches over the past 3 to 4 days. Patient states that he has had the bilateral ear pain before and was given antibiotic drops for this with resolution of his symptoms. Patient states he has a history of COPD and has noticed that he has been having an increase in cough and is having generalized body aches. Patient denies fever, chills, chest pain, shortness of breath. Denies headache, neck stiff ness, change in vision, syncope, or near syncope. Denies nausea, vomiting, abdominal pain, diarrhea, constipation, or dysuria. Has not noted any blood in urine or stool. Patient has been eating and drinking appropriately. Review of systems: As per history of present illness and below otherwise all systems reviewed and negative. Past medical history: As per history of present illness and as reviewed below otherwise noncontributory. Surgical history: As per history of present illness and as reviewed below otherwise noncontributory. Social history: See social history for further information Family history: As per history of present illness and as reviewed below otherwise noncontributory. Physical exam: General: Patient is alert, oriented, and in no acute distress. Patient sitting comfortably on exam table. HEENT: Atraumatic, normocephalic, pupils equal and reactive bilaterally, negative for conjunctival pallor or scleral icterus, mucous membranes moist, TMs normal bilaterally, moderate debris with bilateral mild edema of bilateral external auditory canals, pain with movement of bilateral auricles and palpation of bilateral tragus, negative mastoid tenderness bilaterally, throat clear, neck supple, nontender, trachea midline. No drooling or trismus noted. No meningeal signs. No hot potato voice noted. Lungs: Clear to auscultation, breath sounds equal bilaterally, chest nontender. Heart: S1S2, regular rate and rhythm without overt murmur Abdomen: Soft, nondistended, nontender. Negative for masses or hepatosplenomegaly. Negative for costovertebral tenderness. Pelvis: Stable nontender. Genitourinary: Deferred. Rectal: Deferred. Skin: Intact, warm, dry. No lesions or rashes noted. Extremities: Atraumatic, negative for cords or calf pain. Neurovascular unremarkable. Neuro: Awake, alert, oriented. Cranial nerves II through XII unremarkable. Cerebellum unremarkable. Motor and sensory unremarkable throughout. Exam nonfocal. Notes: Signs and symptoms that would prompt return to the ED thoroughly discussed with patient. Discussed importance for follow-up with a primary care provider. Voices understanding and is agreeable to plan of care. Denies any further questions or concerns at this time. Diagnostics: EKG, CBC, CMP, UA, CXR, Trop, COVID19 Therapeutics: None Prescription: Cortisporin otic, Azithromycin, Prednisone Impression: Bilateral otitis externa COPD exacerbation Plan: 1. Take medication as prescribed. You can alternate ibuprofen and Tylenol as directed for pain and discomfort. 2. Follow-up with a primary care provider as discussed. Return to the ED as needed and as discussed. Definitive disposition and diagnosis as appropriate pending reevaluation and review of above. Bilateral Ear Pain Score (Numeric/FACES): 8 - Related Data Allergies Allergy/AdvReac Type Severity Reaction Status Date / Time codeine Allergy Hives Verified 01/14/20 13:14 Home Meds: Home Meds . [No Known Home Meds] 03/20/19 [History] Past Medical History - Past Health History Medical/Surgical History: Denies Medical/Surgical History HEENT History: Reports: None Cardiovascular History: Reports: None Respiratory History: Reports: Asthma, COPD Gastrointestinal History: Reports: None Genitourinary History: Reports: None Musculoskeletal History: Reports: None Other Musculoskeletal History: pseudo gout Neurological History: Reports: None Psychiatric History: Reports: Aggressive/Hostile Behaviors Endocrine/Metabolic History: Reports: None Hematologic History: Reports: None Immunologic History: Reports: None Oncologic (Cancer) History: Reports: None Dermatologic History: Reports: None - Infectious Disease History Infectious Disease History: Reports: Chicken Pox - Past Surgical History Head Surgeries/Procedures: Reports: None GI Surgical History: Reports: Other (See Below) Other GI Surgeries/Procedures: pyloric stenosis Social & Family History - Family History Family Medical History: No Pertinent Family History - Tobacco Use Tobacco Use Status *Q: Current Every Day Tobacco User Years of Tobacco use: 15 Packs/Tins Daily: 1 - Caffeine Use Caffeine Use: Reports: Energy Drinks - Recreational Drug Use Recreational Drug Use: Yes Recreational Drug Type: Reports: Marijuana/Hashish Recreational Drug Use Frequency: Rarely ED ROS GENERAL - Review of Systems Review Of Systems: Comprehensive ROS is negative, except as noted in HPI. ED EXAM, GENERAL - Physical Exam Exam: See Below (see dictation) Course - Vital Signs Last Recorded V/S: Last Vital Signs Temp 97.3 F 01/14/20 17:30 Pulse 72 01/14/20 17:30 Resp 18 01/14/20 17:30 BP 105/67 01/14/20 17:30 Pulse Ox 98 01/14/20 17:30 - Orders/Labs/Meds Orders: Active Orders 24 hr Category Date Time Status CORONAVIRUS COVID-19 PCR PHL Stat Lab 01/14/20 14:25 Received Labs: Laboratory Tests 01/14/20 01/14/20 01/14/20 Range/Units 14:25 14:45 14:45 WBC 6.61 (4.0-11.0) K/uL RBC 5.29 (4.50-5.90) M/uL Hgb 15.3 (13.0-17.0) g/dL Hct 47.1 (38.0-50.0) % MCV 89.0 (80.0-98.0) fL MCH 28.9 (27.0-32.0) pg MCHC 32.5 (31.0-37.0) g/dL RDW Std Deviation 43.7 (28.0-62.0) fl RDW Coeff of Dmitri 13 (11.0-15.0) % Plt Count 216 (150-400) K/uL MPV 10.80 (7.40-12.00) fL Neut % (Auto) 42.3 L (48.0-80.0) % Lymph % (Auto) 44.3 H (16.0-40.0) % [place] % (Auto) 8.3 (0.0-15.0) % Eos % (Auto) 4.5 (0.0-7.0) % Baso % (Auto) 0.6 (0.0-1.5) % Neut # (Auto) 2.8 (1.4-5.7) K/uL Lymph # (Auto) 2.9 H (0.6-2.4) K/uL [place] # (Auto) 0.6 (0.0-0.8) K/uL Eos # (Auto) 0.3 (0.0-0.7) K/uL Baso # (Auto) 0.0 (0.0-0.1) K/uL Nucleated RBC % 0.0 /100WBC Nucleated RBCs # 0 K/uL D-Dimer, Quantitative < 0.19 (0.0-0.50) mg/L FEU Sodium (136-148) mmol/L Potassium (3.5-5.1) mmol/L Chloride (98-107) mmol/L Carbon Dioxide (21.0-32.0) mmol/L BUN (7.0-18.0) mg/dL Creatinine (0.8-1.3) mg/dL Est Cr Clr Drug Dosing mL/min Estimated GFR (MDRD) ml/min Glucose (74-106) mg/dL Calcium (8.5-10.1) mg/dL Total Bilirubin (0.2-1.0) mg/dL AST (15-37) IU/L ALT (14-63) IU/L Alkaline Phosphatase (46-116) U/L Troponin I (0.000-0.056) ng/mL Total Protein (6.4-8.2) g/dL Albumin (3.4-5.0) g/dL Globulin (2.6-4.0) g/dL Albumin/Globulin Ratio (0.9-1.6) SARS CoV-2 RNA Rapid GAYATHRI NEGATIVE (NEGATIVE) 01/14/20 Range/Units 14:45 WBC (4.0-11.0) K/uL RBC (4.50-5.90) M/uL Hgb (13.0-17.0) g/dL Hct (38.0-50.0) % MCV (80.0-98.0) fL MCH (27.0-32.0) pg MCHC (31.0-37.0) g/dL RDW Std Deviation (28.0-62.0) fl RDW Coeff of Dmitri (11.0-15.0) % Plt Count (150-400) K/uL MPV (7.40-12.00) fL Neut % (Auto) (48.0-80.0) % Lymph % (Auto) (16.0-40.0) % [place] % (Auto) (0.0-15.0) % Eos % (Auto) (0.0-7.0) % Baso % (Auto) (0.0-1.5) % Neut # (Auto) (1.4-5.7) K/uL Lymph # (Auto) (0.6-2.4) K/uL [place] # (Auto) (0.0-0.8) K/uL Eos # (Auto) (0.0-0.7) K/uL Baso # (Auto) (0.0-0.1) K/uL Nucleated RBC % /100WBC Nucleated RBCs # K/uL D-Dimer, Quantitative (0.0-0.50) mg/L FEU Sodium 139 (136-148) mmol/L Potassium 4.0 (3.5-5.1) mmol/L Chloride 105 (98-107) mmol/L Carbon Dioxide 27.7 (21.0-32.0) mmol/L BUN 14 (7.0-18.0) mg/dL Creatinine 0.8 (0.8-1.3) mg/dL Est Cr Clr Drug Dosing 138.43 mL/min Estimated GFR (MDRD) > 60.0 ml/min Glucose 94 (74-106) mg/dL Calcium 8.5 (8.5-10.1) mg/dL Total Bilirubin 0.2 (0.2-1.0) mg/dL AST 22 (15-37) IU/L ALT 44 (14-63) IU/L Alkaline Phosphatase 71 (46-116) U/L Troponin I < 0.050 (0.000-0.056) ng/mL Total Protein 6.4 (6.4-8.2) g/dL Albumin 3.5 (3.4-5.0) g/dL Globulin 2.9 (2.6-4.0) g/dL Albumin/Globulin Ratio 1.2 (0.9-1.6) SARS CoV-2 RNA Rapid GAYATHRI (NEGATIVE) Departure - Departure Time of Disposition: 17:12 Disposition: Home, Self-Care 01 Clinical Impression: COPD with exacerbation Otitis externa Qualifiers: Otitis externa type: unspecified type Chronicity: unspecified Laterality: right Qualified Code(s): H60.91 - Unspecified otitis externa, right ear - Discharge Information Instructions: Otitis Externa, [id number] Referrals: PCP,None [Primary Care Provider] - Forms: ED Department Discharge Additional Instructions: The following information is given to patients seen in the emergency department who are being discharged to home. This information is to outline your options for follow-up care. We provide all patients seen in our emergency department with a follow-up referral. The need for follow-up, as well as the timing and circumstances, are variable depending upon the specifics of your emergency department visit. If you don't have a primary care physician on staff, we will provide you with a referral. We always advise you to contact your personal physician following an emergency department visit to inform them of the circumstance of the visit and for follow-up with them and/or the need for any referrals to a consulting specialist. The emergency department will also refer you to a specialist when appropriate. This referral assures that you have the opportunity for follow-up care with a specialist. All of these measure are taken in an effort to provide you with optimal care, which includes your follow-up. Under all circumstances we always encourage you to contact your private physician who remains a resource for coordinating your care. When calling for follow-up care, please make the office aware that this follow-up is from your recent emergency room visit. If for any reason you are refused follow-up, please contact the [facility] Emergency Department at and asked to speak to the emergency department charge nurse. [facility] [address] [place] [address] [id number] [address] [id number] 1. Take medication as prescribed. You can alternate ibuprofen and Tylenol as directed for pain and discomfort. 2. Follow-up with a primary care provider as discussed. Return to the ED as needed and as discussed. Sepsis Event Note (ED) - Evaluation Sepsis Screening Result: No Definite Risk - Focused Exam Vital Signs: Vital Signs Temp Pulse Resp BP Pulse Ox 01/14/20 17:30 97.3 F 72 18 105/67 98 01/14/20 13:15 97.8 F 89 18 120/78 98 - My Orders Last 24 Hours: My Active Orders 01/14/20 14:25 CORONAVIRUS COVID-19 PCR PHL Stat - Assessment/Plan Last 24 Hours: My Active Orders 01/14/20 14:25 CORONAVIRUS COVID-19 PCR PHL Stat
--- NOTE | 2020-01-14 14:44 | CR ---
INDICATION: Shortness of breath TECHNIQUE: Chest 1 view. COMPARISON: 07/19/2017 FINDINGS: The lung apices are not included on the image. Cardiovascular and mediastinum: Heart size and vasculature are normal in caliber and appearance. Mediastinum is within normal limits. Lungs and pleural space: Lungs are clear. No sign of infiltrate or mass. No sign of pleural effusion. No pneumothorax. Bones and soft tissues: No significant findings. IMPRESSION: Unremarkable chest. The lung apices are not included on the image. Dictated by Vimal Davidson MD @ Jan 14 2020 2:43PM Signed by Dr. Vimal Davidson @ Jan 14 2020 2:43PM
[2020-01-14 15:25] LABS: BLOOD UREA NITROGEN,BUN 14 mg/dL (7.0-18.0); CARBON DIOXIDE,CO2 27.7 mmol/L (21.0-32.0); CHLORIDE,CL 105 mmol/L (98-107); GLUCOSE RANDOM 94 mg/dL (74-106); SODIUM,NA 139 mmol/L (136-148)
--- NOTE | 2020-01-14 15:29 | PCM.SN.2 ---
#1 Interpretation EKG Date: 01/14/20 Time: 15:11 Rhythm: NSR Rate (Beats/Min): 75 Clio: RAD-Right Clio Deviation P-Wave: Present QRS: Normal ST-T: Normal QT: Normal [place]/PQ Interval: 144 Comparison: NA - No Prior EKG
[2020-01-14 19:14] VITALS: BP 105/67; PULSE 72
== END 2020-01-14 17:30 | disposition home or self-care (01) ==
LOC: MW.ED 13:04
DX: J44.1 Chronic obstructive pulmonary disease with (acute) exacerbation (principal); F17.210 Nicotine dependence, cigarettes, uncomplicated; H60.91 Unspecified otitis externa, right ear; Z20.828 Contact with and (suspected) exposure to other viral communicable diseases; Z88.5 Allergy status to narcotic agent
CPT/HCPCS: 36415; 71045; 71045-26; 80053; 84484; 85025; 85379; 93005; 93010; 99284; 99284-25; U0002

== ENCOUNTER 2021-03-27 23:30 | Emergency (ER) | payer MEDICAID ==
[2021-03-27] MEDS ORDERED: Ketorolac 30 MG/ML SDV IM ONE (23:54)
[2021-03-28] MEDS ORDERED: Dexamethasone 4 MG Tab PO STA (00:38)
[2021-03-28] MEDS ORDERED: Penicillin G Benzathine 1,200,000 Units/2 ML Syringe IM ONE (00:41)
[2021-03-28 01:25] VITALS: BP 128/76; PULSE 94
== END 2021-03-28 01:25 | disposition home or self-care (01) ==
LOC: MW.ED 23:30
DX: J02.0 Streptococcal pharyngitis (principal); J44.9 Chronic obstructive pulmonary disease, unspecified; Z88.5 Allergy status to narcotic agent; Z20.822 Contact with and (suspected) exposure to COVID-19
CPT/HCPCS: 87635; 87651; 96372; 99283; J0561; J1885; J8540; U0002

== ENCOUNTER 2021-05-24 20:06 | Emergency (ER) | payer MEDICAID ==
[2021-05-24] MEDS ORDERED: HYDROmorphone 1 MG/ML Syringe IVPUSH ONE (20:33)
[2021-05-24] MEDS ORDERED: Sodium Chloride 0.9% 1,000 ML IV ONE (20:33)
[2021-05-24] MEDS ORDERED: Ondansetron 4 MG/2 ML SDV IVPUSH ONE (20:33)
[2021-05-24 20:49] LABS: BLOOD UREA NITROGEN,BUN 14 mg/dL (7.0-18.0); CARBON DIOXIDE,CO2 28.7 mmol/L (21.0-32.0); CHLORIDE,CL 100 mmol/L (98-107); GLUCOSE RANDOM 121 mg/dL (74-106); POTASSIUM,K 3.8 mmol/L (3.5-5.1); SODIUM,NA 135 mmol/L (136-148)
[2021-05-24] MEDS ORDERED: cefTRIAXone 1 GM in Sodium Chloride 0.9% 50 ML IV ONE (21:32)
[2021-05-24] MEDS ORDERED: Doxycycline 100 MG Cap PO ONE (21:32)
[2021-05-24] MEDS ORDERED: Ciprofloxacin 500 MG Tab PO ONE (21:32)
[2021-05-24 22:53] VITALS: BP 123/87; PULSE 88
[2021-05-26 20:02] LABS: C.TRACHOMATIS BY TMA Negative (Negative); N.GONORRHOEAE BY TMA Negative (Negative)
== END 2021-05-24 23:05 | disposition home or self-care (01) ==
LOC: MW.ED 20:06
DX: N45.1 Epididymitis (principal); Z88.5 Allergy status to narcotic agent
CPT/HCPCS: 36415; 76870; 80053; 81001; 83605; 85025; 87086; 87088; 87186; 87491; 87591; 93976; 96365; 96375; 99284; A9270; J0696; J1170; J2405; J7030

== ENCOUNTER 2021-06-06 23:27 | Emergency (ER) | payer MEDICAID ==
[2021-06-06] MEDS ORDERED: HYDROmorphone 1 MG/ML Syringe IVPUSH ONE (23:56)
[2021-06-06] MEDS ORDERED: Ondansetron 4 MG/2 ML SDV IVPUSH ONE (23:56)
[2021-06-07 00:36] LABS: CARBON DIOXIDE,CO2 29.4 mmol/L (21.0-32.0); POTASSIUM,K 3.9 mmol/L (3.5-5.1)
[2021-06-07] MEDS ORDERED: Ketorolac 30 MG/ML SDV IVPUSH ONE (02:12)
[2021-06-07 02:46] VITALS: BP 116/74; PULSE 105
[2021-06-08 12:07] LABS: C.TRACHOMATIS BY TMA Negative (Negative); N.GONORRHOEAE BY TMA Negative (Negative)
== END 2021-06-07 02:30 | disposition home or self-care (01) ==
LOC: MW.ED 23:27
DX: N45.1 Epididymitis (principal); J44.9 Chronic obstructive pulmonary disease, unspecified; Z88.5 Allergy status to narcotic agent
CPT/HCPCS: 36415; 76870; 80048; 81001; 85025; 87086; 87491; 87591; 93976; 96374; 96375; 99284; J1170; J1885; J2405; 99283

== ENCOUNTER 2021-07-10 20:27 | Emergency (ER) | payer MEDICAID ==
[2021-07-10] MEDS ORDERED: Ketorolac 60 MG/2 ML SDV IM ONE (21:32)
[2021-07-10] MEDS ORDERED: Ciprofloxacin/Hydrocortisone Otic Susp 10 ML Bottle EARLF STA (21:33)
[2021-07-10] MEDS ORDERED: Ciprofloxacin/Dexamethasone 0.3-0.1% Otic Susp 7.5 ML Bottle EARLF STA (21:36)
[2021-07-10 22:59] VITALS: BP 113/76; PULSE 82
== END 2021-07-10 23:02 | disposition home or self-care (01) ==
LOC: MW.ED 20:27
DX: H60.502 Unspecified acute noninfective otitis externa, left ear (principal); J44.9 Chronic obstructive pulmonary disease, unspecified; Z88.5 Allergy status to narcotic agent
CPT/HCPCS: 96372; 99282; A9270; J1885; 99283

== ENCOUNTER 2021-10-15 07:25 | Emergency (ER) | payer MEDICAID ==
[2021-10-15] MEDS ORDERED: HYDROmorphone 1 MG/ML Syringe IVPUSH ONE (08:14)
[2021-10-15] MEDS ORDERED: Ondansetron 4 MG/2 ML SDV IVPUSH ONE (08:14)
[2021-10-15 09:16] LABS: CARBON DIOXIDE,CO2 27.1 mmol/L (21.0-32.0)
[2021-10-15 10:03] LABS: C. TRACHOMATIS BY PCR NOT DETECTED; N. GONORRHOEAE BY PCR NOT DETECTED
[2021-10-15] MEDS ORDERED: Ibuprofen 600 MG Tab PO ONE (10:18)
[2021-10-15 11:01] VITALS: BP 139/96; PULSE 75
== END 2021-10-15 10:59 | disposition home or self-care (01) ==
LOC: MW.ED 07:25
DX: N45.1 Epididymitis (principal); J44.9 Chronic obstructive pulmonary disease, unspecified; Z88.5 Allergy status to narcotic agent
CPT/HCPCS: 36415; 76870; 80053; 81001; 85025; 87086; 87491; 87591; 93976; 96374; 96375; 99284; A9270; J1170; J2405

== ENCOUNTER 2022-09-23 00:51 | Emergency (ER) | payer MEDICAID ==
[2022-09-23] MEDS ORDERED: Sulfamethoxazole/Trimethoprim 800-160 MG Tab PO ONE (01:02)
[2022-09-23 01:03] VITALS: BP 114/84; PULSE 97
== END 2022-09-23 01:14 | disposition home or self-care (01) ==
LOC: MW.ED 00:51
DX: L03.012 Cellulitis of left finger (principal); J44.9 Chronic obstructive pulmonary disease, unspecified; Z88.5 Allergy status to narcotic agent
CPT/HCPCS: 99283; A9270

== ENCOUNTER 2022-09-29 13:13 | Emergency (ER) | payer MEDICAID ==
[2022-09-29 13:51] VITALS: BP 130/69
[2022-09-29] MEDS ORDERED: Lidocaine 1% 5 ML VIAL INJECT STA ×2 (14:00)
[2022-09-29 16:17] VITALS: PULSE 74
== END 2022-09-29 16:16 | disposition home or self-care (01) ==
LOC: MW.ED 13:13
DX: L03.012 Cellulitis of left finger (principal); J44.9 Chronic obstructive pulmonary disease, unspecified; Z88.5 Allergy status to narcotic agent
CPT/HCPCS: 10060; 99283; J3490

== ENCOUNTER 2023-11-15 18:10 | Emergency (ER) | payer MEDICAID ==
[2023-11-15] MEDS: Diphtheria,Pertussis(Acell),Tetanus Vaccine 0.5 ML Syringe IM ONE (20:00)
[2023-11-15] MEDS: Acetaminophen/oxyCODONE 325-5 MG Tab PO ONE (20:01)
[2023-11-15] MEDS: Cephalexin 500 MG Cap PO ONE (20:02)
[2023-11-15] MEDS: Sulfamethoxazole/Trimethoprim 800-160 MG Tab PO ONE (20:45)
[2023-11-15 20:48] VITALS: BP 141/83; PULSE 83
== END 2023-11-15 20:48 | disposition home or self-care (01) ==
LOC: MW.ED 18:10
DX: S60.111A Contusion of right thumb with damage to nail, initial encounter (principal); Z23 Encounter for immunization; F17.210 Nicotine dependence, cigarettes, uncomplicated; Z75.8 Other problems related to medical facilities and other health care; Z88.8 Allergy status to other drugs, medicaments and biological substances; W23.0XXA Caught, crushed, jammed, or pinched between moving objects, initial encounter
CPT/HCPCS: 11740; 73120; 90471; 90715; 99283; A9270

== ENCOUNTER 2024-03-29 15:19 | Emergency (ER) | payer MEDICAID ==
[2024-03-29 16:33] LABS: APPEARANCE,URINE CLOUDY; COLOR,URINE RED; GLUCOSE,URINE NEGATIVE (NEGATIVE); KETONES,URINE NEGATIVE (NEGATIVE); LEUKOCYTE ESTERASE,URINE TRACE (NEGATIVE); NITRITE,URINE NEGATIVE (NEGATIVE); OCCULT BLOOD,URINE LARGE (NEGATIVE); PROTEIN,URINE 30 mg/dL (NEGATIVE); UROBILINOGEN,URINE 0.2 EU/dL (<2.0)
[2024-03-29 16:42] LABS: BILIRUBIN,URINE SMALL (NEGATIVE)
[2024-03-29 16:43] LABS: AMPHETAMINES SCREEN, URINE PRESUMPTIVE POSITIVE (CUTOFF=500); BARBITURATE SCREEN,URINE NEGATIVE (CUTOFF=200); BENZODIAZEPINES SCREEN,URINE NEGATIVE (CUTOFF=150); BUPRENORPHINE SCREEN,URINE NEGATIVE (CUTOFF=10); METHADONE SCREEN, URINE NEGATIVE (CUTOFF=200); METHAMPHETAMINES SCREEN, URINE PRESUMPTIVE POSITIVE (CUTOFF=500); OXYCODONE SCREEN,URINE NEGATIVE (CUT0FF=100); PCP SCREEN,URINE NEGATIVE (CUTOFF=25); THC SCREEN,URINE 20 NG/ML PRESUMPTIVE POSITIVE (CUTOFF=50)
[2024-03-29] MEDS: Ondansetron 4 MG Tab.DIS PO ONE (16:45)
[2024-03-29] MEDS: Acetaminophen 500 MG Tab PO ONE (16:45)
[2024-03-29 16:46] LABS: BACTERIA,URINE FEW (NEGATIVE); EPITHELIAL CELLS,URINE RARE (NONE-FEW); RBC,URINE TOO NUMEROUS TO CT (0-2/HPF)
[2024-03-29 17:13] LABS: BASOPHILS ABSOLUTE AUTO 0.06 K/uL (0.00-0.20); BASOPHILS PERCENT AUTO 0.6 % (0.0-1.0); EOSINOPHILS ABSOLUTE AUTO 0.23 K/uL (0.00-0.45); EOSINOPHILS PERCENT AUTO 2.5 % (0.0-6.0); HEMATOCRIT 44.3 % (42.0-52.0); HEMOGLOBIN 14.7 g/dL (14.0-18.0); IMMATURE GRAN ABSOLUTE AUTO 0.02 K/uL (0.00-0.05); IMMATURE GRAN PERCENT AUTO 0.2 % (0.0-0.4); LYMPHOCYTES ABSOLUTE AUTO 1.98 K/uL (1.00-4.80); LYMPHOCYTES PERCENT AUTO 21.3 % (24.0-44.0); MEAN CORPUSCULAR HEMOGLOBIN 27.8 pg (28.0-32.0); MEAN CORPUSCULAR HGB CONC 33.2 g/dL (32.0-36.0); MEAN CORPUSCULAR VOLUME 83.9 fL (83.0-99.0); MEAN PLATELET VOLUME 9.7 fL (9.4-12.4); MONOCYTES ABSOLUTE AUTO 0.93 K/uL (0.00-0.80); NEUTROPHILS ABSOLUTE AUTO 6.06 K/uL (1.80-7.70); NEUTROPHILS PERCENT AUTO 65.4 % (41.0-71.0); PLATELET COUNT,PLT 207 K/uL (150-400); RED BLOOD CELL COUNT 5.28 M/uL (4.52-5.90); WHITE BLOOD CELL COUNT,WBC 9.28 K/uL (3.9-11.3)
[2024-03-29 17:25] LABS: INR 0.99 (0.86-1.11)
[2024-03-29 17:43] LABS: A/G RATIO 1.2 (0.9-1.6); ALBUMIN 3.7 g/dL (3.4-5.0); BILIRUBIN TOTAL 0.3 mg/dL (0.2-1.0); C-REACTIVE PROTEIN 0.49 mg/dL (<0.3); CARBON DIOXIDE,CO2 25.9 mmol/L (21.0-32.0); EST CRCL DRUG DOSING (CG) 106.18 mL/min; POTASSIUM,K 4.2 mmol/L (3.5-5.1); PROTEIN TOTAL,TP 6.7 g/dL (6.4-8.2)
[2024-03-29 18:07] LABS: C. TRACHOMATIS BY PCR NOT DETECTED; N. GONORRHOEAE BY PCR NOT DETECTED
[2024-03-29] MEDS: Ketorolac 30 MG/ML SDV IM ONE (18:17)
[2024-03-29] MEDS: Ketorolac 30 MG/ML SDV ONE (18:23)
[2024-03-29 19:51] VITALS: BP 118/78; PULSE 77
== END 2024-03-29 19:50 | disposition home or self-care (01) ==
LOC: MW.ED 15:19
DX: M86.9 Osteomyelitis, unspecified (principal); F15.10 Other stimulant abuse, uncomplicated; F12.90 Cannabis use, unspecified, uncomplicated; K02.9 Dental caries, unspecified; R07.9 Chest pain, unspecified; R31.0 Gross hematuria; R30.0 Dysuria; J44.89 Other specified chronic obstructive pulmonary disease; Z88.5 Allergy status to narcotic agent; Z79.899 Other long term (current) drug therapy
CPT/HCPCS: 36415; 73130; 74176; 80053; 80305; 81001; 83880; 84484; 85025; 85610; 85652; 86140; 87491; 87591; 93005; 96372; 99284; A9270; J1885